=== PATIENT | male | born 1975 | race Caucasian/White ===

== ENCOUNTER 2024-01-07 13:58 | Inpatient (IN) ==
--- NOTE | 2024-01-07 14:11 | ED Triage Note ---
Date of Service January 07, 2024 Provider in Triage Author: Mike Pimentel History of Present Illness This patient was briefly evaluated while in triage. An abbreviated physical exam was performed. This patient is a 48-year-old Male who presents to the ED for evaluation of trouble breathing and pain. Recent exposure to covid and flu. Currently treated for pneumonia as of today. On antibiotics now. Hx of smoking. No hx of blood clot. Pain in chest and both sides. Notes he had a chest xray just before coming in today. Physical Exam GENERAL: 48 year old male. In no acute distress. SKIN: No lesions or rashes. HEART: Regular rate and rhythm. LUNGS: Clear to auscultation. ABDOMEN: Bowel sounds normoactive. No guarding or rigidity. No tenderness of palpation. NEURO: Alert and oriented. No deficits. MUSCULOSKELETAL: No deformities to inspection of the extremities. PSYCH: Patient is pleasant and answers all questions appropriately. Initial orders for labs and / or imaging were placed and patient was placed in the waiting area until a bed is available. Please see further documentation for the full ED course. Pt requesting pain medication. We discussed benefit vs risk of toradol and through shared decision making with patient we will proceed.
[2024-01-07] MEDS: KETOROLAC TROMETHAMINE 15 MG/ML VIAL IV ONE (14:32)
--- NOTE | 2024-01-07 15:02 | Electrocardiogram Report ---
Test Reason : Blood Pressure : / mmHG Vent. Rate : 097 BPM Atrial Rate : 097 BPM P-R Int : 156 ms QRS Dur : 094 ms QT Int : 372 ms P-R-T Axes : 043 060 016 degrees QTc Int : 472 ms Normal sinus rhythm Possible Left atrial enlargement Incomplete right bundle branch block Abnormal ECG No previous ECGs available Confirmed by Ifeanyi Townsend ([id number]) on 01/07/2024 3:02:05 PM Referred By: Confirmed By:Pawel Townsend
[2024-01-07 15:07] LABS: Basophils # (auto) 0.05 K/uL (0.00-0.20); Basophils % (auto) 0.3 %; Hematocrit (blood only) 48.3 % (42.0-52.0); Hemoglobin 16.2 g/dl (14.0-18.0); Immature Granulocytes % (auto) 0.7 %; Lymphocytes # (auto) 1.02 K/uL (1.20-3.40); Lymphocytes % (auto) 6.8 %; Mean Corpuscular Hemoglobin 30.6 pg (25.0-34.0); Mean Corpuscular Hgb Conc 33.5 g/dL (32.0-36.0); Mean Corpuscular Volume 91.1 fL (80.0-100.0); Mean Platelet Volume 9.6 fL (9.4-12.4); Monocytes # (auto) 1.29 K/uL (0.11-0.59); Monocytes % (auto) 8.6 %; Neutrophils # (auto) 12.46 K/uL (1.40-6.50); Neutrophils % (auto) 83.6 %; Platelet Count 313 K/uL (130-400); RDW Coefficient of Variation 12.6 % (11.5-14.5); RDW Standard Deviation 41.8 fL (36.4-46.3); White Blood Count 14.92 K/ul (4.8-10.8)
[2024-01-07 15:32] LABS: Albumin Globulin Ratio 1.5 (0.9-2); Albumin Level 4.9 gm/dl (3.4-5.0); BUN Creatinine Ratio 16.3 (10-20); Bilirubin,Total 2.3 mg/dl (0.2-1.0); Calcium 9.9 mg/dl (8.6-10.3); Est GFR (African American) 72.5 ml/min; Est GFR (Non-African American) 62.5 ml/min; Globulin 3.2 gm/dl (2.5-4.0); Potassium 3.8 mmol/L (3.5-5.1); Total Protein 8.1 gm/dl (6.0-8.3)
[2024-01-07 15:38] LABS: INR 1.1 (0.9-1.1); Prothrombin Time 12.3 Seconds (9.0-12.0)
[2024-01-07 15:39] LABS: Troponin I High Sensitivity 16.5 pg/ml (0-20)
[2024-01-07] MEDS: SODIUM CHLORIDE 0.9% 1,000 ML IV SCH ×2 (15:39→16:55)
--- NOTE | 2024-01-07 15:50 | Emergency Department Note ---
History of Present Illness General Chief complaint: Illness Stated complaint: PNEUMONIA, GEN. PAIN, SOB Time Seen by Provider: 01/07/24 14:43 History of Present Illness Maximum Pain Intensity: 10 This is a 48-year-old male with a history of hypertension, hypercholesterolemia that presents to the emergency department via private vehicle with complaints of "chest pain, shortness of breath, cough". The patient notes that last week he was seen at [facility] for dry cough and was prescribed prednisone. He states that he has continued now with worsening symptoms and upon awakening today notes pain in his chest as well as his bilateral posterior ribs. Pain is worse with a deep breath. He notes the cough is productive of a yellowish-sparks sputum. No blood in the sputum. No history of PE or DVT. He notes he felt feverish last night but denies any current fever. He did have Tylenol earlier today. Home Medications Medication Instructions Recorded Confirmed Type Kay 1 tab PO DAILY 01/07/24 01/07/24 History albuterol sulfate 90 mcg/actuation 2 puff inhalation Q4H PRN Other 01/07/24 01/07/24 History aerosol inhaler amoxicillin 875 mg-potassium 1 tab PO BID 01/07/24 01/07/24 History clavulanate 125 mg tablet atorvastatin 20 mg tablet 20 mg PO DAILY 01/07/24 01/07/24 History azithromycin 250 mg tablet 250 mg PO UD 01/07/24 01/07/24 History benzonatate 100 mg capsule 100 mg PO TID cough 01/07/24 01/07/24 History famotidine 20 mg tablet (Pepcid) 20 mg PO DAILY 01/07/24 01/07/24 History lisinopril 10 mg tablet 10 mg PO DAILY 01/07/24 01/07/24 History prednisone 20 mg tablet 20 mg PO UD 01/07/24 01/07/24 History Allergies Allergy/AdvReac Type Severity Reaction Status Date / Time No Known Allergies Allergy Unverified 01/07/24 16:49 Past Med/Surg History Medical History (Updated 01/07/24 @ 22:53 by Mike Pimentel PA-C) Hypercholesterolemia HTN (hypertension) Surgical History (Updated 01/07/24 @ 15:53 by Mike Pimentel PA-C) No pertinent past surgical history Social History Smoking Status: Current every day smoker Preferred Language: Malawian Feels Safe at Home: Yes Review of Systems A total of 10 systems reviewed and were otherwise negative Physical Exam Vital Signs Vital Signs - 24 hr 01/07/24 14:09 01/07/24 15:20 01/07/24 16:10 Temperature 35 C L 36.8 C 36.8 C Temperature Source Temporal Artery Scan Oral Oral Pulse Rate 90 Pulse Rate [Right Finger] 92 H Pulse Rhythm Pulse Rhythm [Right Finger] Regular Pulse Strength [Right Finger] Normal Respiratory Rate 16 16 Respiratory Effort / Characteristics Non-Labored Spontaneous Respiratory Depth Normal Respiratory Pattern Regular Blood Pressure 125/73 Blood Pressure [Right Arm] 104/75 Blood Pressure Mean 90 Blood Pressure Mean [Right Arm] 84 Blood Pressure Position [Right Arm] Semi-fowlers Pulse Oximetry 91 93 Oxygen Delivery Method Room Air Room Air Sepsis Recent Fever Within 48 Hours No Sepsis New/Unexplained Change in Mental Status No Sepsis Action Taken by Nursing No Action Required 01/07/24 16:10 01/07/24 16:26 Temperature Temperature Source Pulse Rate 92 H 89 Pulse Rate [Right Finger] Pulse Rhythm Regular Pulse Rhythm [Right Finger] Pulse Strength [Right Finger] Respiratory Rate 16 Respiratory Effort / Characteristics Respiratory Depth Respiratory Pattern Blood Pressure Blood Pressure [Right Arm] Blood Pressure Mean Blood Pressure Mean [Right Arm] Blood Pressure Position [Right Arm] Pulse Oximetry 93 Oxygen Delivery Method Room Air Sepsis Recent Fever Within 48 Hours Sepsis New/Unexplained Change in Mental Status Sepsis Action Taken by Nursing VITAL SIGNS - Vital signs and nursing notes were reviewed. Borderline hypoxic at 91% on room air, otherwise stable. Afebrile. GENERAL -48-year-old male appearing his stated age who is in no acute distress. Communicates well with provider and answers questions appropriately. SKIN - Without rashes. No meningeal or petechial rash. HEAD - NC/AT. EYES - PERRL with EOMI bilaterally. Sclera anicteric. EARS - No deformities of external structures noted on gross examination bilaterally. No pain elicited with palpation of the tragus bilaterally. External auditory canals without discharge or otorrhea. Tympanic membranes pearly [place] without retraction or bulging. No fluid or purulent material visualized behind the TM. Handle of malleus, umbo, cone of light, pars tensa/flaccid all easily visualized. NOSE - Midline and without cyanosis. No epistaxis or purulent drainage noted. Septum midline without deviation or septal hematoma noted. MOUTH/OROPHARYNX - Without perioral cyanosis. Buccal mucosa pink and moist and without leukoplakia. Tongue midline with equal elevation of palate bilaterally. No tonsillar hypertrophy, erythema, or exudates noted. Good dentition noted. NECK - Neck with FROM. Supple to palpation. No nuchal rigidity. LUNGS -patient with mild increased work of breathing noted. There are no wheezes. CARDIAC - RRR with S1/S2. No murmur, rubs, or gallops appreciated. ABDOMEN - Abdominal contour normal without pulsations or visible masses. BS normoactive all four quadrants. No tenderness, palpable masses, hepatosplenomegaly, or ascites noted. EXTREMITIES - No clubbing or peripheral cyanosis. No pretibial edema present. +5/5 strength noted in UE/LE bilaterally. NEUROLOGIC - Cranial nerves II through XII grossly intact. PSYCH - A&Ox3 and cooperates fully with examiner. Pt is very pleasant and interacts well with examiner. Course Administered Medications Acetaminophen (Acetaminophen 325 Mg Tab) 650 mg PO Q6H [facility] Stop: 02/06/24 21:59 Last Admin: 01/07/24 22:01 Dose: 650 mg Documented By: HB Albuterol (Albut/Ipratrop 3mg/0.5mg Neb 3 Ml Vial) 3 ml NEB QIDR [facility]; Protocol Stop: 02/06/24 18:59 Last Admin: 01/07/24 18:22 Dose: 3 ml Documented By: YORDAN Benzonatate (Benzonatate 100 Mg Capsule) 100 mg PO TID [facility] Stop: 02/06/24 20:59 Last Admin: 01/07/24 21:13 Dose: 100 mg Documented By: HB Enoxaparin Sodium (Enoxaparin Inj 40 Mg/0.4 Ml Syr) 40 mg SQ Q24H [facility] Stop: 02/06/24 20:59 Last Admin: 01/07/24 21:13 Dose: 40 mg Documented By: HB Ampicillin Sodium/Sulbactam Sodium 3,000 mg/ Sodium Chloride 100 mls @ 100 mls/hr IV Q6H [facility] Stop: 01/14/24 19:59 Last Infusion: 01/07/24 20:00 Dose: Infused Documented By: Admin: 01/07/24 19:56 Dose: 100 mls/hr Documented By: STEPHENIE Sodium Chloride (Sodium Chlor 7% 4 Ml Neb) 4 ml NEB BIDR [facility]IANA Stop: 02/06/24 18:59 Last Admin: 01/07/24 20:12 Dose: 4 ml Documented By: YINT Discontinued Medications Acetaminophen (Acetaminophen 500 Mg Tab) 1,000 mg PO NOW STA Stop: 01/07/24 18:09 Last Admin: 01/07/24 18:20 Dose: 1,000 mg Documented By: YORDAN Guaifenesin/Codeine Phosphate (Guaifenesin/Codeine 100mg/10mg 5ml Udc) 10 ml PO NOW STA Stop: 01/07/24 17:29 Last Admin: 01/07/24 18:19 Dose: 10 ml Documented By: YORDAN Sodium Chloride (Nss) 1,000 mls @ 999 mls/hr IV .Q1H1M [facility]IVIANA Stop: 01/07/24 16:00 Last Infusion: 01/07/24 20:00 Dose: Infused Documented By: Admin: 01/07/24 15:39 Dose: 999 mls/hr Documented By: YORDAN Cefepime HCl (Maxipime) 2,000 mg in 20 mls @ 5 mls/min IV NOW STA; Protocol Stop: 01/07/24 16:10 Last Admin: 01/07/24 16:55 Dose: 5 mls/min Documented By: RENA Sodium Chloride (Nss) 1,000 mls @ 999 mls/hr IV .Q1H1M [facility]IVIANA Stop: 01/07/24 17:45 Last Infusion: 01/07/24 20:00 Dose: Infused Documented By: Admin: 01/07/24 16:55 Dose: 999 mls/hr Documented By: RENA Ioversol (Optiray 320 125ml) 117 ml IV ONCE ONE Stop: 01/07/24 15:51 Last Admin: 01/07/24 15:51 Dose: 117 ml Documented By: PAULO Ketorolac Tromethamine (Ketorolac Tromethamine 15 Mg/Ml Vial) 10 mg IV NOW ONE Stop: 01/07/24 14:12 Last Admin: 01/07/24 14:32 Dose: 10 mg Documented By: SOFÍA Morphine Sulfate (Morphine Sulfate 2 Mg/Ml Carp) 2 mg IV NOW STA Stop: 01/07/24 15:36 Last Admin: 01/07/24 16:04 Dose: 2 mg Documented By: YORDAN Ondansetron HCl (Ondansetron Inj 2 Mg/Ml 2 Ml Vial) 4 mg IV NOW STA Stop: 01/07/24 15:36 Last Admin: 01/07/24 16:05 Dose: 4 mg Documented By: YORDAN Medical Decision Making Laboratory Data 01/07/24 11:43 01/07/24 11:43 Lab Results 01/07/24 01/07/24 01/07/24 Range/Units 11:43 14:33 16:35 WBC 14.92 H (4.8-10.8) K/ul RBC 5.30 (4.70-6.10) M/uL Hgb 16.2 (14.0-18.0) g/dl Hct 48.3 (42.0-52.0) % MCV 91.1 (80.0-100.0) fL MCH 30.6 (25.0-34.0) pg MCHC 33.5 (32.0-36.0) g/dL RDW Std Deviation 41.8 (36.4-46.3) fL RDW Coeff of Michelle 12.6 (11.5-14.5) % Plt Count 313 (130-400) K/uL MPV 9.6 (9.4-12.4) fL Immature Gran % (Auto) 0.7 % Neut % (Auto) 83.6 % Lymph % (Auto) 6.8 % [place] % (Auto) 8.6 % Eos % (Auto) 0.0 % Baso % (Auto) 0.3 % Neut # (Auto) 12.46 H (1.40-6.50) K/uL Lymph # (Auto) 1.02 L (1.20-3.40) K/uL [place] # (Auto) 1.29 H (0.11-0.59) K/uL Eos # (Auto) 0.00 (0.00-0.50) K/uL Baso # (Auto) 0.05 (0.00-0.20) K/uL Immature Gran # (Auto) 0.10 (0.01-0.20) K/uL PT 12.3 H (9.0-12.0) Seconds INR 1.1 (0.9-1.1) Sodium 138 (136-145) mmol/L Potassium 3.8 (3.5-5.1) mmol/L Chloride 98 (98-107) mmol/L Carbon Dioxide 26 (21-32) mmol/L Anion Gap 14 H (3-11) BUN 22 (6-23) mg/dl Creatinine 1.35 (0.6-1.4) mg/dl Est Cr Clr Drug Dosing 89.0 ml/min Est GFR ( Amer) 72.5 ml/min Est GFR (Non-Af Amer) 62.5 ml/min BUN/Creatinine Ratio 16.3 (10-20) Glucose 172 H (70-99(Fasting)) mg/dl Lactate 1.8 (0.4-2.0) mmol/L Calcium 9.9 (8.6-10.3) mg/dl Total Bilirubin 2.3 H (0.2-1.0) mg/dl AST 21 (13-39) U/L ALT 23 (7-52) U/L Alkaline Phosphatase 88 (34-104) U/L Troponin I High Sens 16.5 (0-20) pg/ml Total Protein 8.1 (6.0-8.3) gm/dl Albumin 4.9 (3.4-5.0) gm/dl Globulin 3.2 (2.5-4.0) gm/dl Albumin/Globulin Ratio 1.5 (0.9-2) Lipase 4 L (11-82) U/L Procalcitonin 1.05 H (0-0.5) ng/ml Nasal Screen MRSA (PCR) (Negative) Adenovirus (PCR) Not Detected (NotDetected) B. pertussis DNA (PCR) Not Detected (NotDetected) B.parapertussis DNA PCR Not Detected (NotDetected) C. pneumoniae DNA (PCR) Not Detected (NotDetected) Coronavirus OC43 (PCR) Not Detected (NotDetected) Coronavirus HKU1 (PCR) Not Detected (NotDetected) Coronavirus 229E (PCR) Not Detected (NotDetected) SARS-CoV-2 (PCR) Not Detected (NotDetected) Coronavirus NL63 (PCR) Not Detected (NotDetected) Human Metapneumovir PCR DETECTED A (NotDetected) Influenza Type A (PCR) Not Detected (NotDetected) Influenza Type B (PCR) Not Detected (NotDetected) M. pneumoniae (PCR) Not Detected (NotDetected) Parainfluenza 1 (PCR) Not Detected (NotDetected) Parainfluenza 2 (PCR) Not Detected (NotDetected) Parainfluenza 3 (PCR) Not Detected (NotDetected) Parainfluenza 4 (PCR) Not Detected (NotDetected) RSV (PCR) Not Detected (NotDetected) Entero/Rhino (PCR) Not Detected (NotDetected) 01/07/24 Range/Units 17:00 WBC (4.8-10.8) K/ul RBC (4.70-6.10) M/uL Hgb (14.0-18.0) g/dl Hct (42.0-52.0) % MCV (80.0-100.0) fL MCH (25.0-34.0) pg MCHC (32.0-36.0) g/dL RDW Std Deviation (36.4-46.3) fL RDW Coeff of Michelle (11.5-14.5) % Plt Count (130-400) K/uL MPV (9.4-12.4) fL Immature Gran % (Auto) % Neut % (Auto) % Lymph % (Auto) % [place] % (Auto) % Eos % (Auto) % Baso % (Auto) % Neut # (Auto) (1.40-6.50) K/uL Lymph # (Auto) (1.20-3.40) K/uL [place] # (Auto) (0.11-0.59) K/uL Eos # (Auto) (0.00-0.50) K/uL Baso # (Auto) (0.00-0.20) K/uL Immature Gran # (Auto) (0.01-0.20) K/uL PT (9.0-12.0) Seconds INR (0.9-1.1) Sodium (136-145) mmol/L Potassium (3.5-5.1) mmol/L Chloride (98-107) mmol/L Carbon Dioxide (21-32) mmol/L Anion Gap (3-11) BUN (6-23) mg/dl Creatinine (0.6-1.4) mg/dl Est Cr Clr Drug Dosing ml/min Est GFR ( Amer) ml/min Est GFR (Non-Af Amer) ml/min BUN/Creatinine Ratio (10-20) Glucose (70-99(Fasting)) mg/dl Lactate (0.4-2.0) mmol/L Calcium (8.6-10.3) mg/dl Total Bilirubin (0.2-1.0) mg/dl AST (13-39) U/L ALT (7-52) U/L Alkaline Phosphatase (34-104) U/L Troponin I High Sens (0-20) pg/ml Total Protein (6.0-8.3) gm/dl Albumin (3.4-5.0) gm/dl Globulin (2.5-4.0) gm/dl Albumin/Globulin Ratio (0.9-2) Lipase (11-82) U/L Procalcitonin (0-0.5) ng/ml Nasal Screen MRSA (PCR) Negative (Negative) Adenovirus (PCR) (NotDetected) B. pertussis DNA (PCR) (NotDetected) B.parapertussis DNA PCR (NotDetected) C. pneumoniae DNA (PCR) (NotDetected) Coronavirus OC43 (PCR) (NotDetected) Coronavirus HKU1 (PCR) (NotDetected) Coronavirus 229E (PCR) (NotDetected) SARS-CoV-2 (PCR) (NotDetected) Coronavirus NL63 (PCR) (NotDetected) Human Metapneumovir PCR (NotDetected) Influenza Type A (PCR) (NotDetected) Influenza Type B (PCR) (NotDetected) M. pneumoniae (PCR) (NotDetected) Parainfluenza 1 (PCR) (NotDetected) Parainfluenza 2 (PCR) (NotDetected) Parainfluenza 3 (PCR) (NotDetected) Parainfluenza 4 (PCR) (NotDetected) RSV (PCR) (NotDetected) Entero/Rhino (PCR) (NotDetected) Imaging Data Radiologist's Impression: Chest CTA 01/07/24 14:40 CHEST CTA for PULMONARY ARTERIES CT DOSE: 882.34 mGy.cm HISTORY: chest pain, abnormal chest xray TECHNIQUE: Multiaxial CT images of the chest were performed following the intravenous administration of contrast to evaluate the pulmonary arteries. 3D/Maximal intensity projection images were also obtained. Sagittal and coronal reformations were also reviewed. A dose lowering technique was utilized adhering to the principles of ALARA. COMPARISON STUDY: Chest x-ray 01/07/2024. FINDINGS: No acute fractures within the chest. There is a trace right pleural effusion. No pericardial effusion or left pleural effusion. No pneumothorax. Mild bronchial wall thickening within the lower lobes and right middle lobe. Otherwise, the central airways are patent. There are few punctate calcified granuloma seen within the lungs. Partial opacification of the distal right lower lobe bronchi. There are patchy consolidative and groundglass airspace opacities within the base of the bilateral lower lobes most pronounced within the right. This favors a pneumonia. The right lower lobe airspace opacity appears to demonstrate a small focus of cavitation on image 58. The thyroid gland enhances normally. Limited views of the upper abdomen demonstrate a normal spleen and right adrenal gland. The left adrenal gland is not included on this study. There is a partially visualized 1.9 cm hypodense lesion within the left hepatic lobe. This favors a cyst. Normal esophagus. Normal caliber thoracic aorta with no evidence for a dissection. The heart is top normal in size. The central pulmonary arteries are patent. There are few mildly enlarged mediastinal and bilateral hilar lymph nodes. These may be reactive to the suspected pneumonia. IMPRESSION: 1. Patchy consolidative and groundglass airspace opacities within the bilateral lower lobes posteriorly most pronounced on the right. This favors a pneumonia and corresponds the chest x-ray abnormality. There appears be a small focus of central cavitation within the right lower lobe pneumonia. Therefore, this could be due to aspiration. A 3-[address] follow-up recommended to ensure resolution. 2. Trace right pleural effusion. 3. Mild mediastinal and bilateral hilar lymphadenopathy. This is likely reactive. Attention at follow-up recommended. ACT 112: Negative or not required by law. Electronically signed by: Primo Jolley M.D. 01/07/2024 4:31 PM MDM Narrative Patient was seen and evaluated as above in triage, then in the [facility] waiting room, then formally in room B10. Review was performed of nursing notes and vital signs. I did review pertinent previous visits and patient history. After obtaining a thorough history and physical examination the above work up was performed. I did review the patient's outpatient chest x-ray from earlier today. This revealed low lung volumes with mild elevation of the right hemidiaphragm. Abnormal density within the lower lobes posteriorly overlying the thoracic spine. This could represent pneumonia. Follow-up chest CT recommended for further evaluation per radiologist. On my assessment the patient does have mild increased work of breathing. He has a borderline hypoxia at 91% on room air. He does have chest pain and pain in the posterior lateral rib region bilaterally. Patient denies any recent travel. Patient denies any history or exposure to TB that he is aware of. Patient denies any history of intermediate/usp time. Options of care were discussed with the patient. IV access was established. Labs were drawn. EKG was performed. This revealed normal sinus rhythm at a rate of 97 bpm. QTc 472. QRS 94. Incomplete right bundle branch block noted. No ST elevation on this rhythm tracing. No previous for comparison. Patient was medicated with IV Toradol for pain, IV fluids for hydration, and noted continuation of pain therefore was given a small dose of IV morphine, as well as IV Zofran for nausea. CTA of the chest revealed per radiologist patchy consolidative and groundglass airspace opacities within the bilateral lower lobes posteriorly most pronounced on the right. This favors pneumonia and corresponds to the chest x-ray abnormality. This appears to be a small focus of central cavitation within the right lower lobe pneumonia. Therefore, this could be due to aspiration. A 3-6-month chest CT follow-up recommendation to ensure resolution. Trace right pleural effusion. Mild mediastinal and bilateral hilar lymphadenopathy. Likely reactive. Attention follow-up recommended per radiologist. I reviewed these findings with the patient. Will proceed with admission noting the patient's associated borderline hypoxia, increased work of breathing and pain. While here he was medicated with IV cefepime for antibiotic coverage. MRSA nasal swab also obtained as well as sputum culture ordered. Case discussed with the hospitalist service. Please refer to further documentation regarding his stay. Case was discussed with the attending physician. GCS: 15 In the evaluation and treatment of this patient the following differential diagnoses were entertained: PE, pneumonia, dissection, viral illness, TB, among others. Impression & Plan Human metapneumovirus (hMPV) pneumonia, Multifocal pneumonia, Chest pain Discharge Plan Visit Data Chief Complaint: Illness Stated Complaint: PNEUMONIA, GEN. PAIN, SOB ED Provider: Franki Mcgregor ED Midlevel Provider: Mike Pimentel Discharge Problem: Human metapneumovirus (hMPV) pneumonia, Multifocal pneumonia, Chest pain Patient Disposition: Admitted As Inpatient Condition: Good Discharge Instructions Interventions: ED Discharge Assessment Last Done: 01/07/24 19:49
[2024-01-07] MEDS: OPTIRAY 320 125ml IV ONE (15:51)
[2024-01-07 15:52] LABS: Adenovirus PCR Not Detected (NotDetected); Bordetella parapertussis PCR Not Detected (NotDetected); Bordetella pertussis PCR Not Detected (NotDetected); Chlamydia pneumoniae PCR Not Detected (NotDetected); Coronavirus 229E PCR Not Detected (NotDetected); Coronavirus CoV-2 (COVID19)PCR Not Detected (NotDetected); Coronavirus HKU1 PCR Not Detected (NotDetected); Coronavirus NL63 PCR Not Detected (NotDetected); Coronavirus OC43PCR Not Detected (NotDetected); Human Metapneumovirus PCR DETECTED (NotDetected); Influenza A PCR Not Detected (NotDetected); Influenza B PCR Not Detected (NotDetected); Mycoplasma pneumoniae PCR Not Detected (NotDetected); Parainfluenza Virus 1 PCR Not Detected (NotDetected); Parainfluenza Virus 2 PCR Not Detected (NotDetected); Parainfluenza Virus 3 PCR Not Detected (NotDetected); Parainfluenza Virus 4 PCR Not Detected (NotDetected); Respiratory Syncytial VirusPCR Not Detected (NotDetected); Rhinovirus/Enterovirus PCR Not Detected (NotDetected)
[2024-01-07] MEDS: MoRPHine SULFATE 2 MG/ML CARP IV STA (16:04)
[2024-01-07] MEDS: ONDANSETRON INJ 2 MG/ML 2 ML VIAL IV STA (16:05)
--- NOTE | 2024-01-07 16:33 | CT Scan Report ---
CHEST CTA for PULMONARY ARTERIES CT DOSE: 882.34 mGy.cm HISTORY: chest pain, abnormal chest xray TECHNIQUE: Multiaxial CT images of the chest were performed following the intravenous administration of contrast to evaluate the pulmonary arteries. 3D/Maximal intensity projection images were also obta ined. Sagittal and coronal reformations were also reviewed. A dose lowering technique was utilized a dhering to the principles of ALARA. COMPARISON STUDY: Chest x-ray 01/07/2024. FINDINGS: No acute fractures within the chest. There is a trace right pleural effusion. No pericardia l effusion or left pleural effusion. No pneumothorax. Mild bronchial wall thickening within the lower lobes and right middle lobe. Otherwise, the central airways are patent. There are few punctate calci fied granuloma seen within the lungs. Partial opacification of the distal right lower lobe bronchi. T here are patchy consolidative and groundglass airspace opacities within the base of the bilateral low er lobes most pronounced within the right. This favors a pneumonia. The right lower lobe airspace [place] appears to demonstrate a small focus of cavitation on image 58. The thyroid gland enhances [place]. Limited views of the upper abdomen demonstrate a normal spleen and right adrenal gland. The left adrenal gland is not included on this study. There is a partially visualized 1.9 cm hypodense lesion within the left hepatic lobe. This favors a cyst. Normal esophagus. Normal caliber thoracic aorta wi th no evidence for a dissection. The heart is top normal in size. The central pulmonary arteries are patent. There are few mildly enlarged mediastinal and bilateral hilar lymph nodes. These may be react braxton to the suspected pneumonia. IMPRESSION: 1. Patchy consolidative and groundglass airspace opacities within the bilateral lower lobes posterior ly most pronounced on the right. This favors a pneumonia and corresponds the chest x-ray abnormality. There appears be a small focus of central cavitation within the right lower lobe pneumonia. Therefor e, this could be due to aspiration. A 3-[address] follow-up recommended to ensure resolution. 2. Trace right pleural effusion. 3. Mild mediastinal and bilateral hilar lymphadenopathy. This is likely reactive. Attention at follow -up recommended. ACT 112: Negative or not required by law. Electronically signed by: Primo Jolley M.D. 01/07/2024 4:31 PM
[2024-01-07] MEDS: CEFEPIME 2,000 MG/20 ML VIAL IV STA (16:55)
--- NOTE | 2024-01-07 17:05 | History & Physical Report ---
Date of Service January 07, 2024 Assessment & Plan (1) Multifocal pneumonia: Plan: -Admit to med/tele on pulse oximetry -Currently hemodynamically stable and stable on RA -Presented to the ED after he developed BL chest pain and increased SOB this am after waking -CTA of the chest with PE protocol was negative for PE but does show signs consistent with multifocal pneumonia with a central area of cavitation in the RLL consolidation -Patient's symptoms were likely due to his Human metapneumovirus infection last week, but he has progressed to superimposed multifocal pneumonia -High suspicion that he aspirated overnight after taking NyQuil to help with sleep -Had a dose of PO Augmentin and Azithromycin this am prior to ED arrival -His leukocytosis with neutrophil predominance could be due to his recent course of prednisone but cannot rule out his infection causing this -Received a dose of Cefepime and 2L NSS in the ED -MRSA nasal swab is in process, if positive will add MRSA coverage -For now will continue with Unasyn to cover possible aspiration pneumonia and continue Azithromycin for atypical coverage -Sputum culture and blood cultures obtained in the ED, continue to follow -Will consult Pulmonology due to the area of cavitation in the RLL >Patient denies recent travel or incarceration -Incentive spirometry, flutter therapy, QIDr DuoNeb, PRN Guaifenesin/Codeine -Will also start BIDr hypertonic saline nebulizer treatments -PRN O2 to keep SpO2 at or above 92% -SQ lovenox for DVT PPX -HH diet -AM CBC, BMP, mag (2) Human metapneumovirus (hMPV) pneumonia: Plan: -See Multifocal pneumonia -Continue supportive care (3) Chest pain: Plan: -Patient started to experience BL chest pain this am -Is significantly exacerbated with movement and coughing -High sen trop WNL, ECG without ST segment or T-wave abnormalities -CTA of the chest with PE protocol negative for PE -Likely related to his multifocal pneumonia and musculoskeletal pain from coughing -Continue supportive care -Continue Guaifenesin/Codeine, will start q6h scheduled tylenol as well -Continue to monitor on tele (4) Tobacco abuse: Plan: -Has been smoking approximately 1PPD over the past year -Had quit over the past 7 years before restarting -Strongly encouraged cessation, patient is in agreement -Denies the need for nicotine patch/gum at this time (5) Alcohol abuse: Plan: -Drinks approximately 5, mixed drinks, 5 days a week -Denies previous withdrawal symptoms when he does not drink -Last drink was on 01/01 -No signs/symptoms of withdrawal at this time -Continue to monitor (6) HTN (hypertension): Plan: -Stable -Continue lisinopril (7) Hypercholesterolemia: Plan: -Continue statin Plan The patient was discussed with Dr. Jo at the time of the admission History of Present Illness Chief Complaint: Ongoing SOB, chest pain, generalized weakness Primary Care Provider: NIKITA PCP Hector is a 48 year old female with a PMH significant for HTN and hyperlipidemia who presented to the [facility] ED on 01/07/24 with complaints of ongoing SOB, BL chest pain, and generalized weakness. He was noted to be tachycardic with HR of 92 but was otherwise stable. Labs were significant for a leukocytosis of 14 with neutrophil predominance of 12, lymphocyte count of 1.02, AG of 14 with bicarb WNL, glucose of 172, lactate WNL, procal of 1.05, and full respiratory biofire positive for Human [place] pneumovirus. Chest xray was read as "1. Low lung volumes with mild elevation the right hemidiaphragm. 2. Abnormal density within the lower lobes posteriorly overlying the thoracic spine. This could represent a pneumonia. Follow-up chest CT recommended for further evaluation.". Chest CTA with PE protocol was read as "1. Patchy consolidative and groundglass airspace opacities within the bilateral lower lobes posteriorly most pronounced on the right. This favors a pneumonia and corresponds the chest x-ray abnormality. There appears be a small focus of central cavitation within the right lower lobe pneumonia. Therefore, this could be due to aspiration. A 3- [address] follow-up recommended to ensure resolution. 2. Trace right pleural effusion. 3. Mild mediastinal and bilateral hilar lymphadenopathy. This is likely reactive. Attention at follow-up recommended.". Per the ED staff, the patient denies a hx of recent travel or incarceration. Prior to admission the patient was given 2L NSS, a dose of Cefepime, 10 mg IV toradol, 2 mg IV morphine, and 4 mg IV zofran. At the time of the exam the patient was sitting in bed in no acute distress, he does appear ill. He states that he started to develop URI symptoms including SOB, non-productive cough, and generalized weakness. He was evaluated at an Urgent care on 01/02 and was prescribed a 5 day course of prednisone and Tessalon pearls. His symptoms did not improve so he called his PCP yesterday and was prescribed a course of Augmentin and Azithromycin. He states that he had one dose of both this am. Last night he took NyQuil and slept throughout the night. He states that when he woke this morning he started to experience BL chest pain, exacerbated with movement and coughing. He noted a fever of 101F and is now producing yellow-brown sputum. Because of these symptoms he presented to the ED. He states that he had been compliant with smoking cessation for 7 years until he restarted about one year ago. He smokes approximately 1 PPD. Since getting treatment in the ED his chest discomfort has improved but has not subsided. He has been having trouble taking deep breaths due to his chest pain. When asked, he does drink alcohol approximately 5 days a week. He typically drinks mixed drinks with liquor and soda. His last drink was on 01/01. He denies a previous hx of withdrawal symptoms when he stops drinking. Please refer to Dr. Jo' attestation for any changes to the treatment plan Allergies Allergy/AdvReac Type Severity Reaction Status Date / Time No Known Allergies Allergy Unverified 01/07/24 16:49 Home Medications Medication Instructions Recorded Confirmed Type Kay 1 tab PO DAILY 01/07/24 01/07/24 History albuterol sulfate 90 mcg/actuation 2 puff inhalation Q4H PRN Other 01/07/24 01/07/24 History aerosol inhaler amoxicillin 875 mg-potassium 1 tab PO BID 01/07/24 01/07/24 History clavulanate 125 mg tablet atorvastatin 20 mg tablet 20 mg PO DAILY 01/07/24 01/07/24 History azithromycin 250 mg tablet 250 mg PO UD 01/07/24 01/07/24 History benzonatate 100 mg capsule 100 mg PO TID cough 01/07/24 01/07/24 History famotidine 20 mg tablet (Pepcid) 20 mg PO DAILY 01/07/24 01/07/24 History lisinopril 10 mg tablet 10 mg PO DAILY 01/07/24 01/07/24 History prednisone 20 mg tablet 20 mg PO UD 01/07/24 01/07/24 History Past Med/Surg History Medical History (Updated 01/07/24 @ 17:46 by Ion Velasquez PA-C) Hypercholesterolemia HTN (hypertension) Surgical History (Updated 01/07/24 @ 15:53 by Mike Pimentel PA-C) No pertinent past surgical history Social History Smoking Status: Current every day smoker Preferred Language: Uzbek Feels Safe at Home: Yes Physical Exam Physical Exam: Physical Exam: General: In no acute distress, stated age, ill appearing but non-toxic HEENT: Normocephalic, atraumatic, no scleral icterus, pupils around round, symmetrical, and reactive to light, moist mucus membranes, trachea midline, no thyromegaly Chest/Pulm: No respiratory distress, symmetrical chest expansion, currently taking shallow breaths due to BL chest pain, scattered expiratory wheezing in the mid/upper lung bartlett, rhonchi noted in the BL lower lung bartlett Cardiac: RRR, no murmurs noted Abdomen: Negative for ascites and bruising, normoactive bowel sounds, soft, non-tender to palpation throughout Musculoskeletal: Symmetrical and without signs of acute trauma, upper and lower extremities with full ROM, no atrophy, spasticity, or flaccidity Extremities: Radial, dorsalis pedis, and posterior tibial pulses are intact and symmetrical, no edema noted in the BL LE's Skin: Warm, dry, no rashes , lesions, or scars noted Neuro: Alert and oriented to person, place, month, year, and president, no focal defects, no tremors noted Psych: No acute distress, calm and cooperative during the exam Results & Data Results & Data Vital Signs (Past 12 Hours) Vital Signs Temp Pulse Pulse Resp BP BP Pulse Ox 01/07/24 16:10 92 H 16 93 01/07/24 16:10 36.8 C 92 H 16 104/75 93 01/07/24 15:20 36.8 C 01/07/24 14:09 35 C L 90 16 125/73 91 O2 Del Method 01/07/24 16:10 Room Air 01/07/24 16:10 Room Air 01/07/24 15:20 01/07/24 14:09 Room Air Laboratory Results Abnormal lab results 01/07/24 01/07/24 Range/Units 11:43 14:33 WBC 14.92 H (4.8-10.8) K/ul Neut # (Auto) 12.46 H (1.40-6.50) K/uL Lymph # (Auto) 1.02 L (1.20-3.40) K/uL [place] # (Auto) 1.29 H (0.11-0.59) K/uL PT 12.3 H (9.0-12.0) Seconds Anion Gap 14 H (3-11) Glucose 172 H (70-99(Fasting)) mg/dl Total Bilirubin 2.3 H (0.2-1.0) mg/dl Lipase 4 L (11-82) U/L Procalcitonin 1.05 H (0-0.5) ng/ml Human Metapneumovir PCR DETECTED A (NotDetected) Diagnostic Findings Chest CTA 01/07/24 14:40 CHEST CTA for PULMONARY ARTERIES CT DOSE: 882.34 mGy.cm HISTORY: chest pain, abnormal chest xray TECHNIQUE: Multiaxial CT images of the chest were performed following the intr avenous administration of contrast to evaluate the pulmonary arteries. 3D/Maximal intensity projection images were also obtained. Sagittal and coronal reformations were also reviewed. A dose lowering technique was utilized adhering to the principles of ALARA. COMPARISON STUDY: Chest x-ray 01/07/2024. FINDINGS: No acute fractures within the chest. There is a trace right pleural effusion. No pericardial effusion or left pleural effusion. No pneumothorax. Mild bronchial wall thickening within the lower lobes and right middle lobe. Otherwise, the central airways are patent. There are few punctate calcified granuloma seen within the lungs. Partial opacification of the distal right lower lobe bronchi. There are patchy consolidative and groundglass airspace opacities within the base of the bilateral lower lobes most pronounced within the right. This favors a pneumonia. The right lower lobe airspace opacity appears to demonstrate a small focus of cavitation on image 58. The thyroid gland enhances normally. Limited views of the upper abdomen demonstrate a normal spleen and right adrenal gland. The left adrenal gland is not included on this study. There is a partially visualized 1.9 cm hypodense lesion within the left hepatic lobe. This favors a cyst. Normal esophagus. Normal caliber thoracic aorta with no evidence for a dissection. The heart is top normal in size. The central pulmon gregorio arteries are patent. There are few mildly enlarged mediastinal and bilateral hilar lymph nodes. These may be reactive to the suspected pneumonia. IMPRESSION: 1. Patchy consolidative and groundglass airspace opacities within the bilateral lower lobes posteriorly most pronounced on the right. This favors a pneumonia and corresponds the chest x-ray abnormality. There appears be a small focus of central cavitation within the right lower lobe pneumonia. Therefore, this could be due to aspiration. A 3-[address] follow-up recommended to ensure resolution. 2. Trace right pleural effusion. 3. Mild mediastinal and bilateral hilar lymphadenopathy. This is likely reactive. Attention at follow-up recommended. ACT 112: Negative or not required by law. Electronically signed by: Primo Jolley M.D. 01/07/2024 4:31 PM ECG Additional Comments: Normal sinus rhythm Possible Left atrial enlargement Incomplete right bundle branch block Abnormal ECG No previous ECGs available Confirmed by Ifeanyi Townsend ([id number]) on 01/07/2024 3:02:05 PM Code Status & VTE Plan Code Status Full code VTE Prophylaxis Plan VTE Prophylaxis will be ordered: Yes Supervising Physician Co-Signing Physician Notes I have personally seen, evaluated and examined the patient. I have also personally discussed the management of the patient with the resident physician/ZENY and I agree with the exam findings documented in the history and physical examination and the documented assessment and plan unless otherwise stated below. Brief Exam: In general this is a pleasant 48-year-old male is alert and oriented x 3 at time my exam he is accompanied by his at the time of my examination he interacts appropriately. He is in moderate distress with his cough and his breathing. But states that he is not as distressed as he was earlier today when he came and evaluated he has some oxygen in place. HEENT: Normocephalic atraumatic. Heart: Regular rate and rhythm. Lungs coarse bilaterally with diffuse expiratory wheezing and rhonchi mid lung bartlett and lower lung bartlett. Abdomen: Soft nontender with positive bowel sounds. Neurologically: Alert and oriented x 3 and no focal deficit on exam. Assessment/plan: As described above. Please refer to orders for further planning. PG Care Time/CCT Total # of Minutes Spent Total Time Spent with Patient: Total time spent is greater than 50% in coordination of care (as documented) at patient's floor/unit and/or counseling patient: [place] [address] INT INP/OBS CARE 75MIN Patient Type New Medical Decision Making High Complexity Diagnoses Multifocal pneumonia J18.9 Human metapneumovirus (hMPV) pneumonia J12.3 Chest pain R07.9 Tobacco abuse Z72.0 Alcohol abuse F10.10 HTN (hypertension) I10 Hypercholesterolemia E78.00
[2024-01-07 18:12] LABS: Appearance Urine Clear (Clear); Blood Urine Negative (Negative); Color Urine Orange; Epithelial Cell Urine Auto >30 /lpf (0-5); Glucose Urine UA Negative (Negative); Ketones Urine Negative (Negative); Leukocyte Esterase Urine Trace (Negative); Nitrite Urine Positive (Negative); Protein Urine 1+ (Negative); RBC Urine Automated 0-4 /hpf (0-4); Specific Gravity Urine > 1.045 (1.000-1.030); Urobilinogen Urine Negative (Negative)
[2024-01-07] MEDS: guaiFENesin/CODEINE 100MG/10MG 5ML UDC PO STA (18:19)
[2024-01-07] MEDS: ACETAMINOPHEN 500 MG TAB PO STA (18:20)
[2024-01-07] MEDS: ALBUT/IPRATROP 3MG/0.5MG NEB 3 ML VIAL NEB SCH (18:22)
[2024-01-07 18:27] LABS: Bilirubin Urine 1+ (Negative)
[2024-01-07 19:05] LABS: Bacteria Urine Automated 1+ (Negative); Mucus Urine Present (None Prsent)
[2024-01-07] MEDS: AMPICILLIN/SULBACTAM SOD 3,000 MG in SODIUM CHLOR 0.9% MINI-B 100 ML IV SCH (19:56)
[2024-01-07] MEDS: SODIUM CHLOR 7% 4 ML NEB NEB SCH (20:12)
[2024-01-07] MEDS: BENZONATATE 100 MG CAPSULE PO SCH (21:13)
[2024-01-07] MEDS: ENOXAPARIN INJ 40 MG/0.4 ML SYR SQ SCH (21:13)
[2024-01-07] MEDS: ACETAMINOPHEN 325 MG TAB PO SCH (22:01)
[2024-01-08] MEDS: KETOROLAC TROMETHAMINE 15 MG/ML VIAL IV ONE (01:58)
[2024-01-08 05:59] LABS: Hematocrit (blood only) 40.4 % (42.0-52.0); Hemoglobin 13.8 g/dl (14.0-18.0); Mean Corpuscular Hemoglobin 31.1 pg (25.0-34.0); Mean Corpuscular Hgb Conc 34.2 g/dL (32.0-36.0); Mean Platelet Volume 9.6 fL (9.4-12.4); Platelet Count 219 K/uL (130-400); RDW Coefficient of Variation 12.7 % (11.5-14.5); RDW Standard Deviation 42.1 fL (36.4-46.3); Red Blood Count 4.44 M/uL (4.70-6.10); White Blood Count 11.83 K/ul (4.8-10.8)
[2024-01-08 06:03] LABS: BUN Creatinine Ratio 15.7 (10-20); Calcium 7.9 mg/dl (8.6-10.3); Creatinine Clr Calc Pharmacy 53.7 ml/min; Est GFR (African American) 39.5 ml/min; Est GFR (Non-African American) 34.1 ml/min; Magnesium 1.8 mg/dl (1.7-2.4)
[2024-01-08] MEDS ORDERED: lisinopril 10 MG TAB PO SCH (09:00)
--- NOTE | 2024-01-08 09:10 | Pulmonary Consultation ---
Date of Consultation January 08, 2024 Assessment & Plan (1) Multifocal pneumonia: (2) Human metapneumovirus (hMPV) pneumonia: Plan Impression: 48-year-old male with bilateral lower lobe pneumonia. The radiology call of cavitation is not particularly concerning at this point in time as it may represent dilated airway. He also has human metapneumovirus which requires only supportive care. Recommendations: 1. Pneumonia: Agree with antibiotics. Can transition to oral Augmentin with an anticipated course of 7 days. 2. Would recommend follow-up CT imaging in 10 to 12 weeks to document resolution. 3. No therapy indicated for human metapneumovirus. 4. Wean oxygen as tolerated. Patient may require supplemental oxygen at discharge. Formal two-step recommended. 5. High probability for sleep disordered breathing. Would recommend outpatient polysomnography. This can be coordinated through his primary care provider. 6. Smoking cessation recommended. This point time the patient appears to be improving. Disposition per primary service. Pulmonary will sign off. Feel free to contact us with questions or concerns History of Present Illness Attending Physician: Rick Ford MD History of Present Illness Asked by hospitalist to evaluate and assist in management of this patient admitted with pneumonia. History is obtained from discussion with patient as well as review electronic medical record. 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 He states he has been ill for about a week. He was seen at urgent care last week and given prednisone antitussives and Tessalon. Unclear if imaging was performed at that time. He was complaining of cough shortness of breath and chest discomfort. It became severe enough that over the last 48 hours he presented to the emergency room yesterday. He is found to have an elevated white blood cell count and [employer] was positive for metapneumovirus. CT was obtained which showed patchy bilateral lower lobe airspace opacities. He has been initiated on pain control and Unasyn. He is improving but continues to require supplemental oxygen. The patient states that he was advised that he likely has sleep disordered breathing and was referred for sleep study in the past however he did not want to complete that study so he was never evaluated. He is pain is improved. He does not report any recent loss of consciousness or syncopal events. He has not had any recent dental work. He denies any dysphagia or aspiration events. He does have about a [id number] history of tobacco exposure and smokes about 1/2 pack/day. No family history of lung disease that he is aware of. Allergies Allergy/AdvReac Type Severity Reaction Status Date / Time No Known Allergies Allergy Unverified 01/07/24 16:49 Home Medications Medication Instructions Recorded Confirmed Type Kay 1 tab PO DAILY 01/07/24 01/07/24 History albuterol sulfate 90 mcg/actuation 2 puff inhalation Q4H PRN Other 01/07/24 01/07/24 History aerosol inhaler amoxicillin 875 mg-potassium 1 tab PO BID 01/07/24 01/07/24 History clavulanate 125 mg tablet atorvastatin 20 mg tablet 20 mg PO DAILY 01/07/24 01/07/24 History azithromycin 250 mg tablet 250 mg PO UD 01/07/24 01/07/24 History benzonatate 100 mg capsule 100 mg PO TID cough 01/07/24 01/07/24 History famotidine 20 mg tablet (Pepcid) 20 mg PO DAILY 01/07/24 01/07/24 History lisinopril 10 mg tablet 10 mg PO DAILY 01/07/24 01/07/24 History prednisone 20 mg tablet 20 mg PO UD 01/07/24 01/07/24 History Patient History Medical History (Updated 01/07/24 @ 22:53 by Mike Pimentel PA-C) Hypercholesterolemia HTN (hypertension) Surgical History (Updated 01/07/24 @ 15:53 by Mike Pimentel PA-C) No pertinent past surgical history Social History Smoking Status: Current every day smoker Tobacco Type: Cigarettes Cigarettes Per Day: 10; Do You Dip or Chew Tobacco: No; Hx Alcohol Use: Yes Alcohol type: beer Hx Substance Use: No Preferred Language: Danish Communication Ability: Effective Senior Director Of Strategy Required: No Beliefs That Will Affect Care: None Current Living Situation: Spouse and Parent Other Information That Helps Us Care for You: No Feels Safe at Home: Yes Safety Concerns: Feels Safe At This Time Assistive Devices: None Review of Systems Review of Systems: Please refer to admission H&P. No additions or deletions Physical Exam Constitutional: WD/WN, vitals as above Neck: trachea midline, no thyromegaly Respiratory: normal respiratory effort, lungs clear to auscultation Cardiovascular: RRR, no murmur, no edema Gastrointestinal (Abdomen): normal bowel sounds, soft, nontender, no hepatosplenomegaly Musculoskeletal: Extremities: extremities normal to inspection Skin: no rashes, warm and dry Neurologic: Nonfocal exam Lymphatic: no cervical lymphadenopathy Results & Data Results & Data Vital Signs (Past 12 Hours) Vital Signs Temp Pulse Pulse Resp BP BP Pulse Ox 01/08/24 07:38 100 H 01/08/24 06:47 93 H 18 94 01/08/24 05:42 36.8 C 90 20 97/71 L 93 01/08/24 02:00 103 H 29 H 95/70 L 91 01/08/24 01:00 100 H 24 103/65 93 01/08/24 00:00 100 H 21 85/67 L 93 01/07/24 22:58 96 H 01/07/24 21:00 100 H 24 114/76 97 O2 Del Method O2 Flow Rate 01/08/24 07:38 01/08/24 06:47 Nasal Cannula 4 01/08/24 05:42 Nasal Cannula 3 01/08/24 02:00 01/08/24 01:00 01/08/24 00:00 01/07/24 22:58 01/07/24 21:00 Critical Care Results & Data Vital Signs (Past 12 Hours) Vital Signs Temp Pulse Pulse Resp BP BP Pulse Ox 01/08/24 07:38 100 H 01/08/24 06:47 93 H 18 94 01/08/24 05:42 36.8 C 90 20 97/71 L 93 01/08/24 02:00 103 H 29 H 95/70 L 91 01/08/24 01:00 100 H 24 103/65 93 01/08/24 00:00 100 H 21 85/67 L 93 01/07/24 22:58 96 H O2 Del Method O2 Flow Rate 01/08/24 07:38 01/08/24 06:47 Nasal Cannula 4 01/08/24 05:42 Nasal Cannula 3 01/08/24 02:00 01/08/24 01:00 01/08/24 00:00 01/07/24 22:58 Lab & Micro Results (Past 24 Hours) RBC 4.44 M/uL (4.70-6.10) L 01/08/24 WBC 11.83 K/ul (4.8-10.8) H 01/08/24 Hgb 13.8 g/dl (14.0-18.0) L 01/08/24 Hct 40.4 % (42.0-52.0) L 01/08/24 MCV 91.0 fL (80.0-100.0) 01/08/24 MCH 31.1 pg (25.0-34.0) 01/08/24 MCHC 34.2 g/dL (32.0-36.0) 01/08/24 RDW Standard Deviation 42.1 fL (36.4-46.3) 01/08/24 RDW Coefficient of Variation 12.7 % (11.5-14.5) 01/08/24 Plt Count 219 K/uL (130-400) 01/08/24 MPV 9.6 fL (9.4-12.4) 01/08/24 Neutrophils (%) (Auto) 83.6 % 01/07/24 Lymphocytes (%) (Auto) 6.8 % 01/07/24 Monocytes # (Auto) 1.29 K/uL (0.11-0.59) H 01/07/24 Eosinophils # (Auto) 0.00 K/uL (0.00-0.50) 01/07/24 Immature Granulocyte % (Auto) 0.7 % 01/07/24 Neutrophils # (Auto) 12.46 K/uL (1.40-6.50) H 01/07/24 Lymphocytes # (Auto) 1.02 K/uL (1.20-3.40) L 01/07/24 Monocytes # (Auto) 1.29 K/uL (0.11-0.59) H 01/07/24 Eosinophils # (Auto) 0.00 K/uL (0.00-0.50) 01/07/24 Basophils # (Auto) 0.05 K/uL (0.00-0.20) 01/07/24 Immature Granulocyte # (Auto) 0.10 K/uL (0.01-0.20) 4 Na 136 mmol/L (136-145) 01/08/24 K 4.0 mmol/L (3.5-5.1) 01/08/24 Cl 102 mmol/L (98-107) 01/08/24 CO2 22 mmol/L (21-32) 01/08/24 Anion Gap 12 (3-11) H 01/08/24 BUN 35 mg/dl (6-23) H 01/08/24 Creatinine 2.23 mg/dl (0.6-1.4) H 01/08/24 Estimated GFR ( Amer) 39.5 ml/min 01/08/24 Estimated GFR (Non-Af Amer) 34.1 ml/min 01/08/24 BUN/Creatinine Ratio 15.7 (10-20) 01/08/24 Glu 110 mg/dl (70-99(Fasting)) H 01/08/24 Ca 7.9 mg/dl (8.6-10.3) L 01/08/24 Total Bilirubin 2.3 mg/dl (0.2-1.0) H 01/07/24 AST 21 U/L (13-39) 01/07/24 ALT 23 U/L (7-52) 01/07/24 Alkaline Phosphatase 88 U/L (34-104) 01/07/24 TP 8.1 gm/dl (6.0-8.3) 01/07/24 Albumin 4.9 gm/dl (3.4-5.0) 01/07/24 Globulin 3.2 gm/dl (2.5-4.0) 01/07/24 Albumin/Globulin Ratio 1.5 (0.9-2) 01/07/24 Mg 1.8 mg/dl (1.7-2.4) 01/08/24 05:03 Calcium Level 7.9 mg/dl (8.6-10.3) L 01/08/24 05:03 Prothromb Time International Ratio 1.1 (0.9-1.1) 01/07/24 11:4 3 Microbiology 01/07/24 20:50 Gram Stain - Final Sputum, Expectorated Sputum Culture - Preliminary Moderate normal adrian present, final report to follow. Diagnostic Findings (Past 24 Hours) Chest CTA 01/07/24 14:40 CHEST CTA for PULMONARY ARTERIES CT DOSE: 882.34 mGy.cm HISTORY: chest pain, abnormal chest xray TECHNIQUE: Multiaxial CT images of the chest were performed following the intravenous administration of contrast to evaluate the pulmonary arteries. 3D/Maximal intensity projection images were also obtained. Sagittal and coronal reformations were also reviewed. A dose lowering technique was utilized adhering to the principles of ALARA. COMPARISON STUDY: Chest x-ray 01/07/2024. FINDINGS: No acute fractures within the chest. There is a trace right pleural effusion. No pericardial effusion or left pleural effusion. No pneumothorax. Mild bronchial wall thickening within the lower lobes and right middle lobe. Otherwise, the central airways are patent. There are few punctate calcified granuloma seen within the lungs. Partial opacification of the distal right lower lobe bronchi. There are patchy consolidative and groundglass airspace opacities within the base of the bilateral lower lobes most pronounced within the right. This favors a pneumonia. The right lower lobe airspace opacity appears to demonstrate a small focus of cavitation on image 58. The thyroid gland enhances normally. Limited views of the upper abdomen demonstrate a normal spleen and right adrenal gland. The left adrenal gland is not included on this study. There is a partially visualized 1.9 cm hypodense lesion within the left hepatic lobe. This favors a cyst. Normal esophagus. Normal caliber thoracic aorta with no evidence for a dissection. The heart is top normal in size. The central pulmonary arteries are patent. There are few mildly enlarged mediastinal and bilateral hilar lymph nodes. These may be reactive to the suspected pneumonia. IMPRESSION: 1. Patchy consolidative and groundglass airspace opacities within the bilateral lower lobes posteriorly most pronounced on the right. This favors a pneumonia and corresponds the chest x-ray abnormality. There appears be a small focus of central cavitation within the right lower lobe pneumonia. Therefore, this could be due to aspiration. A 3-[address] follow-up recommended to ensure resolution. 2. Trace right pleural effusion. 3. Mild mediastinal and bilateral hilar lymphadenopathy. This is likely reactive. Attention at follow-up recommended. ACT 112: Negative or not required by law. Electronically signed by: Primo Jolley M.D. 01/07/2024 4:31 PM I & O Totals 24 Hours 01/07/24 01/08/24 01/09/24 06:59 06:59 06:59 Intake Total 2200 / 2200 Balance 2200 / 2200 Cumulative 01/07/24 13:58 thru 01/08/24 04:05 Intake Total 2200 Balance 2200 RT Ventilator Mngmt (Last Documented) Ventilator Ordered Settings Respiratory Rate 18 01/08/24 06:47 Ventilator - PT Measurements Respiratory Rate 18 PG Care Time/CCT Total # of Minutes Spent Total Time Spent with Patient: Total time spent is greater than 50% in coordination of care (as documented) at patient's floor/unit and/or counseling patient: Coding Level of Care Code 60230 IN/OBS CONSULT LVL 4,60M Diagnoses Multifocal pneumonia J18.9 Human metapneumovirus (hMPV) pneumonia J12.3
--- NOTE | 2024-01-08 09:26 | Ultrasound Report ---
RENAL ULTRASOUND HISTORY: Acute kidney injury. COMPARISON: None. FINDINGS: Right kidney: 13.4 cm. No hydronephrosis. Normal corticomedullary differentiation and cortical thickn ess. Left kidney: 14.5 cm. There is a 7 mm echogenic focus within the lower pole of the left kidney. No de finite shadowing. No hydronephrosis. Normal corticomedullary differentiation and cortical thickness. Bladder: No bladder wall thickening. The bilateral ureteral jets were identified. IMPRESSION: 1. No hydronephrosis. 2. A 7 mm echogenic focus within the lower pole of the left kidney. This is indeterminate but could r epresent a small stone. 3. Normal bladder and right kidney. ACT 112: Negative or not required by law. Electronically signed by: Primo Jolley M.D. 01/08/2024 9:25 AM
[2024-01-08] MEDS: FAMOTIDINE 20 MG TAB PO SCH (09:27)
[2024-01-08] MEDS: ATORVASTATIN 20 MG TAB PO SCH (09:27)
[2024-01-08] MEDS: LACTATED RINGER'S 1,000 ML IV ONE (09:31)
--- NOTE | 2024-01-08 10:16 | Hospitalist Progress Note ---
Date of Service January 08, 2024 Assessment & Plan (1) Multifocal pneumonia: Plan: Appreciate pulmonology consult (consulted due to cavitation) - plan to switch to Augmentin once definitively improving, follow up CT imaging in 10 to 12 weeks to document resolution. Continue Unasyn, azithromycin (notably took yesterday's dose as outpatient) - WBC improving MRSA nares negative Blood cultures negative 24 hours Urine culture - no growth to date Sputum culture - moderate normal adrian to date (2) Human metapneumovirus (hMPV) pneumonia: Plan: -See Multifocal pneumonia -Continue supportive care (3) DANIELITO (acute kidney injury): Plan: Suspect most likely inadequate fluid resuscitation with hypotension overnight in setting of lisinopril use Bladder scan unremarkable Renal US - possibility of ureterolithiasis therefore CT taken which was normal - > post obstructive cause ruled out at this time (4) Chest pain: Plan: Suspect pleurisy +/- MSK pain due to pneumonia Unfortunately can no longer have Toradol due to DANIELITO - once this is improving we will restart NSAIDs acetaminophen 650mg q6h Troponin x1 negative (5) Tobacco abuse: Plan: Cessation advised Declines nicotine patch (6) Alcohol abuse: Plan: Last drink was on 01/01 No signs/symptoms of withdrawal at this time (7) HTN (hypertension): Plan: Hypotensive overnight, lisinopril discontinued (8) Hypercholesterolemia: Plan: Continue statin Plan VTE prophylaxis - Lovenox 40 mg subcu daily Diet - heart healthy Disposition - continued admission on med/telemetry Admission and Anticipated Discharge Date Admission Date: January 07, 2024 Subjective Feeling improved but generally weak and far off his baseline. Continued shortness of breath. Chest pain on deep inspiration, coughing or palpation over lower anterior ribs. Review of Systems Review of Systems: All systems reviewed & are unremarkable except as noted in HPI & below Physical Exam Constitutional: + ill appearing ENMT: Mouth: + dry oral mucous membranes Respiratory: + uses accessory muscles Auscultation : + crackles and + rhonchi; no wheezes Cardiovascular: Rate/Rhythm: regular rhythm and + tachycardic Heart Sounds: no murmur Extremities: no pedal edema Gastrointestinal (Abdomen): normal bowel sounds, soft, nontender, no hepatosplenomegaly Skin: no rashes, warm and dry Neurologic: moves all extremities and awake; not confused Psychiatric: A+Ox3, euthymic affect Genitourinary: no CVA tenderness Results & Data Results & Data Vital Signs (Past 12 Hours) Vital Signs Temp Pulse Pulse Resp BP BP Pulse Ox 01/08/24 07:38 100 H 01/08/24 06:47 93 H 18 94 01/08/24 05:42 36.8 C 90 20 97/71 L 93 01/08/24 02:00 103 H 29 H 95/70 L 91 01/08/24 01:00 100 H 24 103/65 93 01/08/24 00:00 100 H 21 85/67 L 93 01/07/24 22:58 96 H O2 Del Method O2 Flow Rate 01/08/24 07:38 01/08/24 06:47 Nasal Cannula 4 01/08/24 05:42 Nasal Cannula 3 01/08/24 02:00 01/08/24 01:00 01/08/24 00:00 01/07/24 22:58 PG Care Time/CCT Total # of Minutes Spent Total Time Spent with Patient: Total time spent is greater than 50% in coordination of care (as documented) at patient's floor/unit and/or counseling patient: Coding Level of Care Code 72043 SUB INP/OBS CARE 2/35MIN Diagnoses Multifocal pneumonia J18.9 Human metapneumovirus (hMPV) pneumonia J12.3 DANIELITO (acute kidney injury) N17.9 Chest pain R07.9 Tobacco abuse Z72.0 Alcohol abuse F10.10 HTN (hypertension) I10 Hypercholesterolemia E78.00
[2024-01-08] MEDS: HYDROmorphone INJ 0.5 MG/0.5 ML SYR IV PRN (10:49)
[2024-01-08] MEDS: AZITHROMYCIN 500 MG in DEXTROSE 5% 250 ML IV SCH (10:50)
--- NOTE | 2024-01-08 11:03 | CT Scan Report ---
CT abd pelvis wo con CLINICAL HISTORY: DANIELITO, possible stone on renal US TECHNIQUE: Helical axial images of the abdomen and pelvis were obtained. Automated dose lowering tech niques and/or adjustment according to patient size were utilized for this exam. This exam was perfor med without intravenous contrast. CT DOSE: 1619.82 mGy.cm COMPARISON: Comparison is made to renal ultrasound 01/08/2024 FINDINGS: Lower chest: Small right pleural effusion is seen. There is airspace opacity in the bilateral lower lungs, likely superimposed on atelectasis. Liver: There is a 16 mm hepatic cyst. Gallbladder and biliary tree: Vicarious excretion of contrast is seen in the gallbladder. No intra- o r extrahepatic biliary ductal dilation. Pancreas: Unremarkable, no focal lesions. Spleen: Unremarkable. Adrenals: Unremarkable. Kidneys and ureters: Subcentimeter hypodensities in the left kidney which may represent cyst. No obst ructive stone is seen to correspond to hyperechoic lesion seen on ultrasound. Bladder: Limited evaluation due to underdistention. Reproductive organs: Prostatic calcifications are seen which may represent prior hemorrhage or granul omatous disease. Bowel: Diverticulosis is seen without diverticulitis. The appendix is normal. Lymph nodes Retroperitoneal: Unremarkable. Pelvic: Unremarkable. Mesenteric: Unremarkable. Peritoneum: Normal. Vessels: Atherosclerotic calcifications are seen. Abdominal wall: Umbilical degenerative Bones: Unremarkable. IMPRESSION: No acute abnormality and in particular no evidence of hydronephrosis or obstructive stone. No correla te is seen for the echogenic focus on prior ultrasound, which may have represented medullary fat. ACT 112: Negative or not required by law. Electronically signed by: Сергей Fitzpatrick M.D. 01/08/2024 11:01 AM
[2024-01-08] MEDS: LACTATED RINGER'S 1,000 ML IV SCH (12:36)
--- NOTE | 2024-01-08 13:16 | XRay Report ---
SINGLE VIEW CHEST CLINICAL HISTORY: Hypoxia FINDINGS: 2 AP, portable, upright chest radiographs are compared to chest x-ray and chest CT dated . The heart is mildly enlarged. There is mild pulmonary vascular congestion. There is bibasila r airspace consolidation, right greater than left. Small pleural effusions have increased in size fro m yesterday. No pneumothorax is seen. The bony thorax is grossly intact. IMPRESSION: 1. Cardiomegaly with mild pulmonary vascular congestion. 2. Bibasilar airspace consolidation is again noted. 3. Right large left pleural effusions have moderately increased in size from yesterday. ACT 112: Negative or not required by law. Electronically signed by: Figueroa Jain M.D. 01/08/2024 1:15 PM
[2024-01-08] MEDS: guaiFENesin/CODEINE 100MG/10MG 5ML UDC PO PRN (16:09)
[2024-01-09 05:27] LABS: Hematocrit (blood only) 37.7 % (42.0-52.0); Hemoglobin 12.7 g/dl (14.0-18.0); Mean Corpuscular Hemoglobin 30.9 pg (25.0-34.0); Mean Corpuscular Hgb Conc 33.7 g/dL (32.0-36.0); Mean Corpuscular Volume 91.7 fL (80.0-100.0); Mean Platelet Volume 9.9 fL (9.4-12.4); Platelet Count 228 K/uL (130-400); RDW Coefficient of Variation 12.9 % (11.5-14.5); RDW Standard Deviation 43.2 fL (36.4-46.3); Red Blood Count 4.11 M/uL (4.70-6.10)
[2024-01-09 06:04] LABS: Albumin Globulin Ratio 1.1 (0.9-2); Albumin Level 3.3 gm/dl (3.4-5.0); BUN Creatinine Ratio 17.9 (10-20); Bilirubin,Total 0.8 mg/dl (0.2-1.0); Calcium 8.4 mg/dl (8.6-10.3); Creatinine Clr Calc Pharmacy 59.6 ml/min; Est GFR (African American) 44.8 ml/min; Est GFR (Non-African American) 38.6 ml/min; Magnesium 2.1 mg/dl (1.7-2.4); Potassium 3.6 mmol/L (3.5-5.1); Total Protein 6.3 gm/dl (6.0-8.3)
[2024-01-09] MEDS: AZITHROMYCIN 250 MG TAB PO ONE (09:09)
--- NOTE | 2024-01-09 19:08 | Hospitalist Progress Note ---
Date of Service January 09, 2024 Assessment & Plan (1) Multifocal pneumonia: Plan: Appreciate pulmonology consult (consulted due to cavitation) - plan to switch to Augmentin once definitively improving, follow up CT imaging in 10 to 12 weeks to document resolution. Continue Unasyn, azithromycin (notably took yesterday's dose as outpatient) - WBC improving Procalcitonin increased and ongoing fevers (if these continue tomorrow may need to change antibiotics but suspect just lagging) MRSA nares negative Blood cultures negative 48 hours Urine culture - no growth to date Sputum culture - moderate normal adrian to date (2) Human metapneumovirus (hMPV) pneumonia: Plan: -See Multifocal pneumonia -Continue supportive care (3) DANIELITO (acute kidney injury): Plan: Suspect most likely inadequate fluid resuscitation with hypotension overnight in setting of lisinopril use Bladder scan unremarkable Renal US - possibility of ureterolithiasis therefore CT taken which was normal - > post obstructive cause ruled out at this time Improving with IV fluids, will continue LR overnight, likely can be discontinued tomorrow (4) Chest pain: Plan: Suspect pleurisy +/- MSK pain due to pneumonia Continue to avoid NSAIDs while Cr significantly elevated Continue acetaminophen 650mg q6h Troponin x1 negative (5) Tobacco abuse: Plan: Cessation advised Declines nicotine patch (6) Alcohol abuse: Plan: Last drink was on 01/01 No signs/symptoms of withdrawal at this time (7) HTN (hypertension): Plan: Continue off lisinopril due to DANIELITO, hypotensive on day of admission (8) Hypercholesterolemia: Plan: Continue statin Plan VTE prophylaxis - Lovenox 40 mg subcu daily Diet - heart healthy Disposition - continued admission on med/telemetry Admission and Anticipated Discharge Date Admission Date: January 07, 2024 Subjective No significant change in shortness of breath or chest pain. Ongoing fevers as of this morning at 3:42am. Eating and drinking well. Review of Systems Review of Systems: All systems reviewed & are unremarkable except as noted in HPI & below Physical Exam Constitutional: well developed; + not well nourished and no acute distress Respiratory: normal respiratory effort; no respiratory distress Auscultation: + crackles (bibasal); breath sounds present, no diminished lung sounds, no rales, no rhonchi and no wheezes Cardiovascular: Rate/Rhythm: regular rhythm and + tachycardic Heart Sounds: no murmur Extremities: no pedal edema Gastrointestinal (Abdomen): normal bowel sounds, soft, nontender, no hepatosplenomegaly Skin: no rashes, warm and dry Neurologic: moves all extremities and awake; not confused Psychiatric: A+Ox3, euthymic affect Results & Data Results & Data Vital Signs (Past 12 Hours) Vital Signs Temp Pulse Pulse Resp BP BP Pulse Ox 01/09/24 15:32 37.5 C 98 H 18 130/81 91 01/09/24 14:48 102 H 18 93 01/09/24 13:59 105 H 01/09/24 13:00 88 L 01/09/24 12:00 94 01/09/24 11:49 37 C 87 18 135/87 90 01/09/24 11:45 96 01/09/24 10:32 90 18 93 01/09/24 07:55 36.8 C 93 H 18 133/88 93 01/09/24 07:18 78 20 95 01/09/24 07:07 O2 Del Method O2 Flow Rate 01/09/24 15:32 Room Air 01/09/24 14:48 Nasal Cannula 1.5 01/09/24 13:59 01/09/24 13:00 Room Air, Nasal Cannula 0 01/09/24 12:00 Room Air, Nasal Cannula 2 01/09/24 11:49 Nasal Cannula 3 01/09/24 11:45 Nasal Cannula 3 01/09/24 10:32 Nasal Cannula 2 01/09/24 07:55 Nasal Cannula 3 01/09/24 07:18 Nasal Cannula 2 01/09/24 07:07 Nasal Cannula 2 PG Care Time/CCT Total # of Minutes Spent Total Time Spent with Patient: Total time spent is greater than 50% in coordination of care (as documented) at patient's floor/unit and/or counseling patient: Coding Level of Care Code 25069 SUB INP/OBS CARE 2/35MIN Diagnoses Multifocal pneumonia J18.9 Human metapneumovirus (hMPV) pneumonia J12.3 DANIELITO (acute kidney injury) N17.9 Chest pain R07.9 Tobacco abuse Z72.0 Alcohol abuse F10.10 HTN (hypertension) I10 Hypercholesterolemia E78.00
[2024-01-10 06:07] LABS: Hemoglobin 12.3 g/dl (14.0-18.0); Mean Corpuscular Hemoglobin 30.6 pg (25.0-34.0); Mean Corpuscular Hgb Conc 34.2 g/dL (32.0-36.0); Mean Corpuscular Volume 89.6 fL (80.0-100.0); Mean Platelet Volume 9.6 fL (9.4-12.4); Platelet Count 309 K/uL (130-400); RDW Coefficient of Variation 12.9 % (11.5-14.5); RDW Standard Deviation 42.6 fL (36.4-46.3); Red Blood Count 4.02 M/uL (4.70-6.10); White Blood Count 12.33 K/ul (4.8-10.8)
[2024-01-10 06:23] LABS: BUN Creatinine Ratio 15.9 (10-20); Creatinine Clr Calc Pharmacy 76.3 ml/min; Est GFR (African American) 60.4 ml/min; Est GFR (Non-African American) 52.1 ml/min; Potassium 3.6 mmol/L (3.5-5.1)
[2024-01-10] MEDS ORDERED: SODIUM CHLORIDE 0.65% NA SOLN 45 ML (OCEAN) PRN (14:11)
--- NOTE | 2024-01-10 16:09 | Hospitalist Progress Note ---
Date of Service January 10, 2024 Assessment & Plan (1) Multifocal pneumonia: Plan: Appreciate pulmonology consult (consulted due to cavitation) - plan to switch to Augmentin once definitively improving, follow up CT imaging in 10 to 12 weeks to document resolution. Continue Unasyn -continue to follow, seems to be overall improving MRSA nares negative Slowly weaning oxygen, hopefully home soon (2) Human metapneumovirus (hMPV) pneumonia: Plan: Likely initially a viral insult, with secondary bacterial overgrowth. Certainly human metapneumovirus can cause severe illness in and of itself. (3) DANIELITO (acute kidney injury): Plan: Improving on IV fluids. Continue fluids, continue to trend (4) Chest pain: Plan: Suspect pleurisy +/- MSK pain due to pneumonia Continue to avoid NSAIDs while Cr significantly elevated Continue acetaminophen 650mg q6h Troponin negative (5) Tobacco abuse: Plan: Would definitely benefit from smoke cessation (6) Alcohol abuse: Plan: Last drink was on 01/01 No signs/symptoms of withdrawal at this time (7) HTN (hypertension): Plan: Continue off lisinopril due to DANIELITO, hypotensive on day of admission (8) Hypercholesterolemia: Plan: Continue statin Plan VTE prophylaxis - Lovenox 40 mg subcu daily Diet - heart healthy Disposition -hopefully home soon Admission and Anticipated Discharge Date Admission Date: January 07, 2024 Subjective Feeling better, breathing better. Coughing but not bringing a lot up although he feels a lot rumbling in his chest. Overall feels improved, just not quite well enough to go home. Is now been weaned to 1 L nasal cannula. Review of Systems Review of Systems: All systems reviewed & are unremarkable except as noted in HPI & below Physical Exam Physical Exam: In general he is awake and alert fatigued appearing small nosebleed on his nasal cannula that is staining his mustache, otherwise no distress. HEENT normocephalic atraumatic mucous membranes moist. Lungs show scattered rhonchi with no real focality, no accessory muscle use, no wheezing no real rales. Good effort. Skin without rashes pallor or icterus. Neuro without focal deficits. Results & Data Results & Data Vital Signs (Past 12 Hours) Vital Signs Temp Pulse Pulse Resp BP Pulse Ox O2 Del Method 01/10/24 15:44 87 20 88 L Nasal Cannula 01/10/24 15:14 99.0 F 94 H 20 168/92 H 90 Nasal Cannula 01/10/24 11:24 99.9 F H 84 20 156/94 H 92 Nasal Cannula 01/10/24 11:19 89 20 93 Nasal Cannula 01/10/24 10:31 Nasal Cannula 01/10/24 07:55 87 01/10/24 07:39 99.5 F 85 20 145/90 H 94 Nasal Cannula 01/10/24 07:22 83 18 94 Nasal Cannula O2 Flow Rate 01/10/24 15:44 1 01/10/24 15:14 2 01/10/24 11:24 2 01/10/24 11:19 1 01/10/24 10:31 1 01/10/24 07:55 01/10/24 07:39 2 01/10/24 07:22 2 PG Care Time/CCT Total # of Minutes Spent Total Time Spent with Patient: Total time spent is greater than 50% in coordination of care (as documented) at patient's floor/unit and/or counseling patient: Coding Level of Care Code 07118 SUB INP/OBS CARE 3/50MIN Diagnoses Multifocal pneumonia J18.9 Human metapneumovirus (hMPV) pneumonia J12.3 DANIELITO (acute kidney injury) N17.9 Chest pain R07.9 Tobacco abuse Z72.0 Alcohol abuse F10.10 HTN (hypertension) I10 Hypercholesterolemia E78.00
[2024-01-11 05:14] LABS: Basophils # (auto) 0.05 K/uL (0.00-0.20); Basophils % (auto) 0.4 %; Eosinophils # (auto) 0.01 K/uL (0.00-0.50); Eosinophils % (auto) 0.1 %; Hemoglobin 12.6 g/dl (14.0-18.0); Lymphocytes # (auto) 0.85 K/uL (1.20-3.40); Lymphocytes % (auto) 6.3 %; Mean Corpuscular Hemoglobin 30.6 pg (25.0-34.0); Mean Corpuscular Hgb Conc 33.2 g/dL (32.0-36.0); Mean Corpuscular Volume 92.2 fL (80.0-100.0); Mean Platelet Volume 9.7 fL (9.4-12.4); Monocytes # (auto) 1.99 K/uL (0.11-0.59); Monocytes % (auto) 14.7 %; Neutrophils # (auto) 10.21 K/uL (1.40-6.50); Neutrophils % (auto) 75.5 %; Platelet Count 326 K/uL (130-400); RDW Coefficient of Variation 13.1 % (11.5-14.5); Red Blood Count 4.12 M/uL (4.70-6.10); White Blood Count 13.51 K/ul (4.8-10.8)
[2024-01-11 05:26] LABS: BUN Creatinine Ratio 15.2 (10-20); Calcium 8.9 mg/dl (8.6-10.3); Creatinine Clr Calc Pharmacy 91.5 ml/min; Est GFR (African American) 74.5 ml/min; Est GFR (Non-African American) 64.2 ml/min; Potassium 3.6 mmol/L (3.5-5.1)
[2024-01-11] MEDS ORDERED: Nursing to Pharmacy Communication ONE (09:42)
--- NOTE | 2024-01-11 17:01 | Hospitalist Progress Note ---
Date of Service January 11, 2024 Assessment & Plan (1) Multifocal pneumonia: Plan: Appreciate pulmonology consult (consulted due to cavitation) - plan to switch to Augmentin once definitively improving - anticipate course of 7days per pulm Follow up CT imaging in 10 to 12 weeks to document resolution. Continue Unasyn -continue to follow, seems to be overall improving though has been borderline febrile MRSA nares negative Slowly weaning oxygen - Will obtain formal two-step prior to discharge Outpatient sleep study recommended by pulm (2) Human metapneumovirus (hMPV) pneumonia: Plan: Likely initially a viral insult, with secondary bacterial overgrowth (3) DANIELITO (acute kidney injury): Plan: Improving on IV fluids. Continue fluids, continue to trend (4) Chest pain: Plan: Suspect pleurisy +/- MSK pain due to pneumonia Continue to avoid NSAIDs while Cr elevated Continue acetaminophen 650mg q6h Troponin negative (5) Tobacco abuse: Plan: Would definitely benefit from smoke cessation (6) Alcohol abuse: Plan: Last drink was on 01/01 No signs/symptoms of withdrawal at this time (7) HTN (hypertension): Plan: Continue off lisinopril due to DANIELITO, hypotensive on day of admission DANIELITO improving on 01/10 with BPs elevated - may consider reinitiation of lisin opril 01/11 (8) Hypercholesterolemia: Plan: Continue statin Plan VTE prophylaxis - Lovenox 40 mg subcu daily Diet - heart healthy Disposition -hopefully home soon Admission and Anticipated Discharge Date Admission Date: January 07, 2024 Subjective Still having difficulty with breathing, coughing fits, and chest discomfort with coughing Review of Systems Review of Systems: Per subjective Physical Exam Physical Exam: General: Ill but nontoxic-appearing, NAD Cardiovascular: RRR, no M/R/G Pulmonary: Decreased breath sounds with minimal aeration, scattered rhonchi, no discrete wheezing Extremities: Moving all extremities Integumentary: No suspicious rash or lesion on exposed skin Neurologic: AAOx3, no focal deficits Psychiatric: Appropriate mood/affect Results & Data Results & Data Vital Signs (Past 12 Hours) Vital Signs Temp Pulse Pulse Resp BP BP Pulse Ox 01/11/24 16:21 37.8 C H 98 H 17 169/100 H 92 01/11/24 15:49 91 H 18 92 01/11/24 15:05 93 H 01/11/24 11:33 37.4 C 85 19 154/92 H 93 01/11/24 11:26 88 18 92 01/11/24 09:35 01/11/24 08:14 37.3 C 88 19 176/99 H 91 01/11/24 07:48 83 01/11/24 07:34 90 16 94 O2 Del Method O2 Flow Rate 01/11/24 16:21 Nasal Cannula 2 01/11/24 15:49 Nasal Cannula 2 01/11/24 15:05 01/11/24 11:33 Nasal Cannula, Nebulizer 01/11/24 11:26 Nasal Cannula 2 01/11/24 09:35 Nasal Cannula 1 01/11/24 08:14 Nasal Cannula 2 01/11/24 07:48 01/11/24 07:34 Nasal Cannula 1.5 Laboratory Results Labs reviewed this morning with WBC slight increase to 13.5, hemoglobin stable at 12.6, sodium normal at 136 with normal potassium, creatinine improved to 1.32, procalcitonin down trended to 1.8 PG Care Time/CCT Total # of Minutes Spent Total Time Spent with Patient: Total time spent is greater than 50% in coordination of care (as documented) at patient's floor/unit and/or counseling patient: Coding Level of Care Code 87922 SUB INP/OBS CARE 3/50MIN Diagnoses Multifocal pneumonia J18.9 Human metapneumovirus (hMPV) pneumonia J12.3 DANIELITO (acute kidney injury) N17.9 Chest pain R07.9 Tobacco abuse Z72.0 Alcohol abuse F10.10 HTN (hypertension) I10 Hypercholesterolemia E78.00
[2024-01-12 04:57] LABS: Basophils # (auto) 0.04 K/uL (0.00-0.20); Basophils % (auto) 0.3 %; Eosinophils # (auto) 0.01 K/uL (0.00-0.50); Eosinophils % (auto) 0.1 %; Hemoglobin 12.6 g/dl (14.0-18.0); Immature Granulocytes # (auto) 0.62 K/uL (0.01-0.20); Immature Granulocytes % (auto) 4.5 %; Lymphocytes # (auto) 1.06 K/uL (1.20-3.40); Lymphocytes % (auto) 7.6 %; Mean Corpuscular Hemoglobin 31.2 pg (25.0-34.0); Mean Corpuscular Hgb Conc 34.1 g/dL (32.0-36.0); Mean Corpuscular Volume 91.6 fL (80.0-100.0); Mean Platelet Volume 9.6 fL (9.4-12.4); Monocytes # (auto) 1.83 K/uL (0.11-0.59); Monocytes % (auto) 13.2 %; Neutrophils # (auto) 10.34 K/uL (1.40-6.50); Neutrophils % (auto) 74.3 %; Platelet Count 389 K/uL (130-400); RDW Coefficient of Variation 13.4 % (11.5-14.5); RDW Standard Deviation 45.5 fL (36.4-46.3); Red Blood Count 4.04 M/uL (4.70-6.10)
[2024-01-12 05:13] LABS: BUN Creatinine Ratio 13.9 (10-20); Calcium 8.9 mg/dl (8.6-10.3); Creatinine Clr Calc Pharmacy 102.7 ml/min; Est GFR (African American) 81.9 ml/min; Est GFR (Non-African American) 70.7 ml/min; Potassium 3.4 mmol/L (3.5-5.1)
[2024-01-12] MEDS: POTASSIUM CHLORIDE CRTAB 20 MEQ TABCR PO STA (07:57)
--- NOTE | 2024-01-12 11:38 | XRay Report ---
XR chest 1V portable CLINICAL HISTORY: worsening O2, febrile, hx PNA and effusion TECHNIQUE: Single frontal radiograph of the chest was obtained. Comparison: Comparison is made to chest radiograph 01/08/2024 FINDINGS: No lines and tubes are seen. The cardiomediastinal silhouette is normal. Right greater than left lowe r lung airspace opacities are seen. Neurovascular prominence is seen. There is a moderate to large ri ght and small left pleural effusion. IMPRESSION: 1. Moderate large right and small left pleural effusion with underlying atelectasis. Superimposed pn eumonia cannot be excluded. 2. Cardiomegaly and mild pulmonary edema. ACT 112: Negative or not required by law. Electronically signed by: Сергей Fitzpatrick M.D. 01/12/2024 11:36 AM
--- NOTE | 2024-01-12 13:17 | CT Scan Report ---
CT chest diagnostic wo con CLINICAL HISTORY: eval parapneumonic effusion TECHNIQUE: Multidetector row helical CT of the chest was performed. Coronal and sagittal reformations were obtained. Automated dose lowering techniques and/or adjustment according to patient size were u tilized for this exam. CT DOSE: 899.64 mGy.cm Comparison: Comparison is made to CT chest 01/07/2024 and chest radiograph 01/12/2024 FINDINGS: Lungs and pleura: Large right and moderate left pleural effusions are seen with associated atelectasi s. Underlying nodular densities are suggested in the left lower lobe. Heart and pericardium: Heart size is normal. No pericardial effusion. Vessels: Mild atherosclerotic changes in the aorta and coronary arteries. Mediastinum and radha: Mediastinal nodes measure up to 12 mm in diameter. Chest wall and lower neck: Gynecomastia is noted bilaterally. Abdomen: Unremarkable. Bones: Degenerative changes in the thoracic spine. IMPRESSION: Large right and moderate left pleural effusions with associated atelectasis are unchanged from radiog raph performed same day but increased from prior CT. Nodular appearing densities in the left lower jr ng may represent the infectious/inflammatory process seen on prior CT. Mediastinal lymphadenopathy is seen, possibly reactive. ACT 112: Negative or not required by law. Electronically signed by: Сергей Fitzpatrick M.D. 01/12/2024 1:15 PM
--- NOTE | 2024-01-12 15:30 | Hospitalist Progress Note ---
Date of Service January 12, 2024 Assessment & Plan (1) Multifocal pneumonia: Plan: Appreciate pulmonology consult (consulted due to cavitation) - on Unasyn with plan originally to switch to Augmentin once definitively improving. However patient with slight increase in O2 requirements with fevers overnight and now chest imaging demonstrating parapneumonic effusions right greater than left. Reached out to pulm for re-evaluation and awaiting their decision on how to best proceed. For now, will continue Unasyn. Tentatively follow up CT imaging in 10 to 12 weeks to document resolution, pending pulm plans for effusions MRSA nares negative Outpatient sleep study recommended by pulm (2) Human metapneumovirus (hMPV) pneumonia: Plan: Likely initially a viral insult, with secondary bacterial overgrowth (3) Parapneumonic effusion: (4) DANIELITO (acute kidney injury): Plan: Improving on IV fluids. Continue fluids, continue to trend (5) Chest pain: Plan: Suspect pleurisy +/- MSK pain due to pneumonia Continue to avoid NSAIDs with recent DANIELITO Continue acetaminophen 650mg q6h Troponin negative (6) Tobacco abuse: Plan: Would definitely benefit from smoke cessation (7) Alcohol abuse: Plan: Last drink was on 01/01 No signs/symptoms of withdrawal at this time (8) HTN (hypertension): Plan: Continue off lisinopril due to DANIELITO, hypotensive on day of admission DANIELITO improving with BPs elevated - may consider reinitiation of lisinopril 01/12 (9) Hypercholesterolemia: Plan: Continue statin (10) Hypokalemia: Plan: Repleted, will monitor and replete as indicated Plan VTE prophylaxis - Lovenox 40 mg subcu daily Diet - heart healthy Disposition - pending pulm plan for parapneumonic effusion Admission and Anticipated Discharge Date Admission Date: January 07, 2024 Subjective Still having difficulty with breathing, though feels it a bit better overall, still having coughing fits and chest discomfort from coughing. Feels his oxygenation and respiratory status worsens especially at nighttime. Review of Systems Review of Systems: Per subjective Physical Exam Physical Exam: General: Ill but nontoxic-appearing, NAD Cardiovascular: Tachycardic, regular rhythm, no M/R/G Pulmonary: Diminished breath sounds with minimal aeration, especially at bases and middle right lung, scattered rhonchi, no discrete wheezing Extremities: Moving all extremities Integumentary: No suspicious rash or lesion on exposed skin Neurologic: AAOx3, no focal deficits Psychiatric: Appropriate mood/affect Results & Data Results & Data Vital Signs (Past 12 Hours) Vital Signs Temp Pulse Pulse Pulse Pulse Pulse Pulse 01/12/24 15:17 01/12/24 11:48 01/12/24 11:36 104 H 108 H 101 H 101 H 99 H 01/12/24 11:34 37.3 C 01/12/24 11:18 01/12/24 08:25 01/12/24 08:24 105 H 01/12/24 08:01 37.1 C 01/12/24 07:23 01/12/24 04:00 Pulse Resp Resp Resp Resp Resp Resp 01/12/24 15:17 99 H 18 01/12/24 11:48 01/12/24 11:36 21 23 18 18 17 01/12/24 11:34 86 20 01/12/24 11:18 91 H 16 01/12/24 08:25 01/12/24 08:24 01/12/24 08:01 84 20 01/12/24 07:23 91 H 14 01/12/24 04:00 BP Pulse Ox Pulse Ox Pulse Ox Pulse Ox Pulse Ox Pulse Ox 01/12/24 15:17 90 01/12/24 11:48 01/12/24 11:36 85 L 91 87 L 90 86 L 01/12/24 11:34 166/103 H 88 L 01/12/24 11:18 94 01/12/24 08:25 01/12/24 08:24 01/12/24 08:01 169/92 H 93 01/12/24 07:23 93 01/12/24 04:00 176/90 H O2 Del Method O2 Flow Rate O2 Flow Rate O2 Flow Rate O2 Flow Rate O2 Flow Rate 01/12/24 15:17 Nasal Cannula 2 01/12/24 11:48 Nasal Cannula 2 01/12/24 11:36 2 3 1 2 01/12/24 11:34 Room Air 01/12/24 11:18 Nasal Cannula 3 01/12/24 08:25 Nasal Cannula 1 01/12/24 08:24 01/12/24 08:01 Nasal Cannula 3 01/12/24 07:23 Nasal Cannula 3 01/12/24 04:00 Laboratory Results Reviewed labs this morninguptrending WBC to 13.9, hemoglobin stable at 12.6, potassium low at 3.4. Creatinine normalized at 1.2 Diagnostic Findings Update chest x-ray ordered and obtained today with moderate to large right and small left pleural effusions, cardiomegaly and mild pulmonary edema Noncontrast chest CT obtained demonstrates large right and moderate left pleural effusions with associated atelectasis, nodular appearing densities in the left lower lung may represent infectious/inflammatory process seen on prior CT, mediastinal lymphadenopathy is seen PG Care Time/CCT Total # of Minutes Spent Total Time Spent with Patient: Total time spent is greater than 50% in coordination of care (as documented) at patient's floor/unit and/or counseling patient: Coding Level of Care Code 92545 SUB INP/OBS CARE 3/50MIN Diagnoses Multifocal pneumonia J18.9 Human metapneumovirus (hMPV) pneumonia J12.3 Parapneumonic effusion J18.9; J91.8 DANIELITO (acute kidney injury) N17.9 Chest pain R07.9 Tobacco abuse Z72.0 Alcohol abuse F10.10 HTN (hypertension) I10 Hypercholesterolemia E78.00 Hypokalemia E87.6
[2024-01-12] MEDS: LIDOCAINE 2% LOCAL 50 ML VIAL ONE (18:28)
[2024-01-12] MEDS ORDERED: LIDOCAINE 2% MPF LOCAL 5 ML VIAL INFIL ONE (18:31)
--- NOTE | 2024-01-12 18:34 | Pulmonology Progress Note ---
Date of Service January 12, 2024 Assessment & Plan (1) Multifocal pneumonia: (2) Human metapneumovirus (hMPV) pneumonia: Plan Impression: 48-year-old male with bilateral lower lobe pneumonia. He has now developed large pleural effusions. I attempted to place a pigtail catheter on the right in 2 separate locations however the patient's body habitus made this extremely difficult to get the wire to pass in both attempts did not result in the catheter in good position with drainage. The second attempt did result in some brisk bleeding which was controlled with local pressure. Recommendations: 1. Pneumonia: Continue Unasyn 2. Parapneumonic effusion: Discussed with hospitalist. He has failed 2 attempts at bedside ultrasound-guided percutaneous drainage largely due to body habitus. At this point in time, I would recommend that the patient be evaluated by interventional radiology to see if they can get a pigtail in 1 or both sides of the effusion. If he should develop hemodynamic instability, surgical chest tube could be placed on the right. Given his instrumentation and the bleeding associated with the last procedure, he is at risk for hemothorax and a repeat CBC will be ordered in a few hours as well as a chest x-ray. These recommendations were directly communicated to the hospitalist as well as to the patient and his family.. 3. No therapy indicated for human metapneumovirus. Admission and Anticipated Discharge Date Admission Date: January 07, 2024 Subjective Asked by hospitalist to reevaluate this patient with persistent fevers. He was seen previously for questionable cavitation. He has had persistent fevers despite antibiotics and a chest x-ray today demonstrated progressive pleural effusion confirmed on CT scan. Cannot rule out parapneumonic effusion Patient continues to feel poorly. He is experiencing some chest pain. Review of Systems Review of Systems: All systems reviewed & are unremarkable except as noted in Subjective Physical Exam Constitutional: WD/WN, vitals as above Neck: trachea midline, no thyromegaly Respiratory: no respiratory distress, no labored breathing and not tachypneic Auscultation: + diminished lung sounds Cardiovascular: RRR, no murmur, no edema Gastrointestinal (Abdomen): normal bowel sounds, soft, nontender, no hepatosplenomegaly Musculoskeletal: Extremities: extremities normal to inspection Skin: no rashes, warm and dry Lymphatic: no cervical lymphadenopathy Results & Data Results & Data Vital Signs (Past 12 Hours) Vital Signs Temp Pulse Pulse Pulse Pulse Pulse Pulse 01/12/24 15:56 104 H 01/12/24 15:36 37.9 C H 01/12/24 15:17 01/12/24 11:48 01/12/24 11:36 104 H 108 H 101 H 101 H 99 H 01/12/24 11:34 37.3 C 01/12/24 11:18 01/12/24 08:25 01/12/24 08:24 105 H 01/12/24 08:01 37.1 C 01/12/24 07:23 Pulse Resp Resp Resp Resp Resp Resp 01/12/24 15:56 01/12/24 15:36 97 H 16 01/12/24 15:17 99 H 18 01/12/24 11:48 01/12/24 11:36 21 23 18 18 17 01/12/24 11:34 86 20 01/12/24 11:18 91 H 16 01/12/24 08:25 01/12/24 08:24 01/12/24 08:01 84 20 01/12/24 07:23 91 H 14 BP BP Pulse Ox Pulse Ox Pulse Ox Pulse Ox Pulse Ox 01/12/24 15:56 01/12/24 15:36 176/96 H 92 01/12/24 15:17 90 01/12/24 11:48 01/12/24 11:36 85 L 91 87 L 90 01/12/24 11:34 166/103 H 88 L 01/12/24 11:18 94 01/12/24 08:25 01/12/24 08:24 01/12/24 08:01 169/92 H 93 01/12/24 07:23 93 Pulse Ox O2 Del Method O2 Flow Rate O2 Flow Rate O2 Flow Rate O2 Flow Rate O2 Flow Rate 01/12/24 15:56 01/12/24 15:36 Nasal Cannula 2 01/12/24 15:17 Nasal Cannula 2 01/12/24 11:48 Nasal Cannula 2 01/12/24 11:36 86 L 2 3 1 2 01/12/24 11:34 Room Air 01/12/24 11:18 Nasal Cannula 3 01/12/24 08:25 Nasal Cannula 1 01/12/24 08:24 01/12/24 08:01 Nasal Cannula 3 01/12/24 07:23 Nasal Cannula 3 Critical Care Results & Data Vital Signs (Past 12 Hours) Vital Signs Temp Pulse Pulse Pulse Pulse Pulse Pulse 01/12/24 15:56 104 H 01/12/24 15:36 37.9 C H 01/12/24 15:17 01/12/24 11:48 01/12/24 11:36 104 H 108 H 101 H 101 H 99 H 01/12/24 11:34 37.3 C 01/12/24 11:18 01/12/24 08:25 01/12/24 08:24 105 H 01/12/24 08:01 37.1 C 01/12/24 07:23 Pulse Resp Resp Resp Resp Resp Resp 01/12/24 15:56 01/12/24 15:36 97 H 16 01/12/24 15:17 99 H 18 01/12/24 11:48 01/12/24 11:36 21 23 18 18 17 01/12/24 11:34 86 20 01/12/24 11:18 91 H 16 01/12/24 08:25 01/12/24 08:24 01/12/24 08:01 84 20 01/12/24 07:23 91 H 14 BP BP Pulse Ox Pulse Ox Pulse Ox Pulse Ox Pulse Ox 01/12/24 15:56 01/12/24 15:36 176/96 H 92 01/12/24 15:17 90 01/12/24 11:48 01/12/24 11:36 85 L 91 87 L 90 01/12/24 11:34 166/103 H 88 L 01/12/24 11:18 94 01/12/24 08:25 01/12/24 08:24 01/12/24 08:01 169/92 H 93 01/12/24 07:23 93 Pulse Ox O2 Del Method O2 Flow Rate O2 Flow Rate O2 Flow Rate O2 Flow Rate O2 Flow Rate 01/12/24 15:56 01/12/24 15:36 Nasal Cannula 2 01/12/24 15:17 Nasal Cannula 2 01/12/24 11:48 Nasal Cannula 2 01/12/24 11:36 86 L 2 3 1 2 01/12/24 11:34 Room Air 01/12/24 11:18 Nasal Cannula 3 01/12/24 08:25 Nasal Cannula 1 01/12/24 08:24 03/24/24 08:01 Nasal Cannula 3 01/12/24 07:23 Nasal Cannula 3 Lab & Micro Results (Past 24 Hours) RBC 4.04 M/uL (4.70-6.10) L 01/12/24 WBC 13.90 K/ul (4.8-10.8) H 01/12/24 Hgb 12.6 g/dl (14.0-18.0) L 01/12/24 Hct 37.0 % (42.0-52.0) L 01/12/24 MCV 91.6 fL (80.0-100.0) 01/12/24 MCH 31.2 pg (25.0-34.0) 01/12/24 MCHC 34.1 g/dL (32.0-36.0) 01/12/24 RDW Standard Deviation 45.5 fL (36.4-46.3) 01/12/24 RDW Coefficient of Variation 13.4 % (11.5-14.5) 01/12/24 Plt Count 389 K/uL (130-400) 01/12/24 MPV 9.6 fL (9.4-12.4) 01/12/24 Neutrophils (%) (Auto) 74.3 % 01/12/24 Lymphocytes (%) (Auto) 7.6 % 01/12/24 Monocytes # (Auto) 1.83 K/uL (0.11-0.59) H 01/12/24 Eosinophils # (Auto) 0.01 K/uL (0.00-0.50) 01/12/24 Immature Granulocyte % (Auto) 4.5 % 01/12/24 Neutrophils # (Auto) 10.34 K/uL (1.40-6.50) H 01/12/24 Lymphocytes # (Auto) 1.06 K/uL (1.20-3.40) L 01/12/24 Monocytes # (Auto) 1.83 K/uL (0.11-0.59) H 01/12/24 Eosinophils # (Auto) 0.01 K/uL (0.00-0.50) 01/12/24 Basophils # (Auto) 0.04 K/uL (0.00-0.20) 01/12/24 Immature Granulocyte # (Auto) 0.62 K/uL (0.01-0.20) H 01/11 Na 138 mmol/L (136-145) 01/12/24 K 3.4 mmol/L (3.5-5.1) L 01/12/24 Cl 100 mmol/L (98-107) 01/12/24 CO2 30 mmol/L (21-32) 01/12/24 Anion Gap 8 (3-11) 01/12/24 BUN 17 mg/dl (6-23) 01/12/24 Creatinine 1.22 mg/dl (0.6-1.4) 01/12/24 Estimated GFR ( Amer) 81.9 ml/min 01/12/24 Estimated GFR (Non-Af Amer) 70.7 ml/min 01/12/24 BUN/Creatinine Ratio 13.9 (10-20) 01/12/24 Glu 110 mg/dl (70-99(Fasting)) H 01/12/24 Ca 8.9 mg/dl (8.6-10.3) 01/12/24 Calcium Level 8.9 mg/dl (8.6-10.3) 01/12/24 04:08 Diagnostic Findings (Past 24 Hours) Chest X-Ray 01/12/24 07:43 XR chest 1V portable CLINICAL HISTORY: worsening O2, febrile, hx PNA and effusion TECHNIQUE: Single frontal radiograph of the chest was obtained. Comparison: Comparison is made to chest radiograph 01/08/2024 FINDINGS: No lines and tubes are seen. The cardiomediastinal silhouette is normal. Right greater than left lower lung airspace opacities are seen. Neurovascular prominence is seen. There is a moderate to large right and small left pleural effusion. IMPRESSION: 1. Moderate large right and small left pleural effusion with underlying atelectasis. Superimposed pneumonia cannot be excluded. 2. Cardiomegaly and mild pulmonary edema. ACT 112: Negative or not required by law. Electronically signed by: Сергей Fitzpatrick M.D. 01/12/2024 11:[address] 01/12/24 12:19 CT chest diagnostic wo con CLINICAL HISTORY: eval parapneumonic effusion TECHNIQUE: Multidetector row helical CT of the chest was performed. Coronal and sagittal reformations were obtained. Automated dose lowering techniques and/or adjustment according to patient size were utilized for this exam. CT DOSE: 899.64 mGy.cm Comparison: Comparison is made to CT chest 01/07/2024 and chest radiograph 01/12/2024 FINDINGS: Lungs and pleura: Large right and moderate left pleural effusions are seen with associated atelectasis. Underlying nodular densities are suggested in the left lower lobe. Heart and pericardium: Heart size is normal. No pericardial effusion. Vessels: Mild atherosclerotic changes in the aorta and coronary arteries. Mediastinum and radha: Mediastinal nodes measure up to 12 mm in diameter. Chest wall and lower neck: Gynecomastia is noted bilaterally. Abdomen: Unremarkable. Bones: Degenerative changes in the thoracic spine. IMPRESSION: Large right and moderate left pleural effusions with associated atelectasis are unchanged from radiograph performed same day but increased from prior CT. Nodular appearing densities in the left lower lung may represent the in fectious/inflammatory process seen on prior CT. Mediastinal lymphadenopathy is seen, possibly reactive. ACT 112: Negative or not required by law. Electronically signed by: Сергей Fitzpatrick M.D. 01/12/2024 1:15 PM I & O Totals 24 Hours 01/11/24 01/12/24 01/13/24 06:59 06:59 06:59 Intake Total 3040 / 3040 3945.417 / 3945.417 1640.000 / 1640.000 Balance 3040 / 3040 3945.417 / 3945.417 1640.000 / 1640.000 Cumulative 01/07/24 13:58 thru 01/12/24 15:04 Intake Total 77422.749 Balance 70695.749 RT Ventilator Mngmt (Last Documented) Ventilator Ordered Settings Respiratory Rate [Exercise O2 23 01/12/24 11:36 Corrective 2] Respiratory Rate [Exercise O2 21 01/12/24 11:36 Corrective 1] Respiratory Rate [Resting 18 01/12/24 11:36 Corrective 2] Respiratory Rate [Resting 18 01/12/24 11:36 Corrective 1] Respiratory Rate [Resting] 17 01/12/24 11:36 Respiratory Rate 16 01/12/24 15:36 Ventilator - PT Measurements Respiratory Rate [Exercise O2 23 Corrective 2] Respiratory Rate [Exercise O2 21 Corrective 1] Respiratory Rate [Resting 18 Corrective 2] Respiratory Rate [Resting 18 Corrective 1] Respiratory Rate [Resting] 17 Respiratory Rate 16 PG Care Time/CCT Total # of Minutes Spent Total Time Spent with Patient: Total time spent is greater than 50% in coordination of care (as documented) at patient's floor/unit and/or counseling patient: Coding Level of Care Code 44789 SUB INP/OBS CARE 350MIN Diagnoses Multifocal pneumonia J18.9 Human metapneumovirus (hMPV) pneumonia J12.3
--- NOTE | 2024-01-12 18:42 | Procedure Note ---
Procedure Note Date of Service January 12, 2024 Note Procedure: Attempted 14 Maldivian pigtail catheter placement Indication: Probable parapneumonic effusion Consent risk and benefits were discussed with the patient. He agreed. Sandal Parts Assembler Dr. Matos Estimated blood loss: Less than 5 mL Anesthesia: 10 mL 2% lidocaine without epinephrine locally. Procedure: Patient was identified. Imaging studies had been independently reviewed. Risks and benefits discussed with the patient as well as with family. The patient was placed in a upright seated position. Thoracic ultrasound was performed posteriorly demonstrating bilateral pleural effusions although was difficult to visualize due to the patient's body habitus. A site appropriate on the right was marked as the CT scan demonstrated that appeared to be the largest effusion. The skin was anesthetized using lidocaine. A skin isaiah was made with scalpel. An 18-gauge needle was advanced over the rib into the pleural space. I was able to aspirate some cloudy fluid. A wire was passed through the needle. Passing the wire was somewhat difficult. We dilated the tract after the needle was removed leaving the wire in place. A 14 Maldivian skater catheter was then passed over the wire into the pleural space however I was unable to aspirate significant fluid despite multiple attempts at repositioning the catheter. The catheter was withdrawn. It was clotted with fat material. A second chest tube site was identified approximately 3 cm superior to the initial attempt. The same procedure was conducted. Again the 14 Maldivian skater catheter was placed however again it was unable to aspirate any fluid and it was removed. On r emoval, there was some brisk pulsatile bruit bleeding and direct compression was held for 2 minutes which resulted in hemostasis. A pressure dressing was applied. This point in time additional attempts at ultrasound-guided percutaneous tube placement are unlikely to be beneficial and given the bleeding associated with the last attempt are relatively contraindicated. Discussed with the [facility] . Would recommend consulting with interventional radiology. Will check a CBC and chest x-ray later this evening to ensure no significant hemothorax. If the patient were to become hemodynamically unstable or if the effusion significantly increased in size, surgical chest tube should be placed. The above recommendations and plan were discussed with the patient, family, and with the admitting hospitalist. Coding CPT Codes Pulmonary/Thoracic - Pulmonary and Thoracic: 03150 Tube thoracostomy ([id number]) [facility] [place] Codes (Charges) Pulmonary/Thoracic Procedure 1: Pulmonary and Thoracic: 25752 Tube thoracostomy
[2024-01-12] MEDS ORDERED: MoRPHine SULFATE 2 MG/ML CARP ONE (19:37)
[2024-01-12] MEDS: MoRPHine SULFATE 2 MG/ML CARP IV STA (19:41)
--- NOTE | 2024-01-12 19:42 | XRay Report ---
XR chest 1V portable CLINICAL HISTORY: hemothorax TECHNIQUE: Single frontal radiograph of the chest was obtained. Comparison: Comparison is made to chest radiograph 01/12/2024 FINDINGS: No lines and tubes are seen. The cardiomediastinal silhouette is obscured. Bilateral airspace opaciti es are seen. Large right and small left pleural effusion. IMPRESSION: Large right and small left pleural effusion with underlying airspace opacities. The left effusion is stable, the right is stable to mildly enlarged. ACT 112: Negative or not required by law. Electronically signed by: Сергей Fitzpatrick M.D. 01/12/2024 7:40 PM
[2024-01-12] MEDS: NOREPINEPHRINE/D5W 4 MG/250 ML IV ONE ×2 (19:54→21:45)
[2024-01-12] MEDS ORDERED: RAPID SEQUENCE INDUCTION BAG ONE (20:08)
[2024-01-12 20:09] LABS: iSTAT Allen Test Pass; iSTAT Art Bld Gas pCO2 Correct 75 mmHg (35-46); iSTAT Art Bld Gas pH Corrected 7.183 (7.35-7.45); iSTAT Arterial Blood Gas HCO3 28 meg/L (19-24); iSTAT Arterial Blood Gas pCO2 75 mmHg (35-46); iSTAT Arterial Blood Gas pH 7.18 (7.35-7.45); iSTAT Arterial Blood Gas pO2 58 mmHg (80-95); iSTAT Arterial Blood Gas pO2 C 58; iSTAT Carbon Dioxide 31 mmol/L (24-31); iSTAT Hematocrit 32 % (42-52); iSTAT Hemoglobin 10.9 g/dl (14.0-18.0); iSTAT Site L Radial; iSTAT Sodium 138 mmol/L (135-144)
[2024-01-12] MEDS: PROPOFOL IV EMULSION 10 MG/ML 100 ML VIAL IV ONE (20:11)
[2024-01-12] MEDS ORDERED: VECURONIUM BROMIDE 10 MG VIAL IV ONE (20:25)
[2024-01-12] MEDS ORDERED: SODIUM CHLORIDE 0.9% 1,000 ML IV SCH (20:30)
[2024-01-12] MEDS: fentaNYL citrate PF 100 MCG/2 ML VIAL ONE ×2 (20:53→22:12)
[2024-01-12 21:00] LABS: Hematocrit (blood only) 29.2 % (42.0-52.0); Hemoglobin 9.4 g/dl (14.0-18.0); Mean Corpuscular Hemoglobin 30.6 pg (25.0-34.0); Mean Corpuscular Hgb Conc 32.2 g/dL (32.0-36.0); Mean Corpuscular Volume 95.1 fL (80.0-100.0); Mean Platelet Volume 9.8 fL (9.4-12.4); Platelet Count 547 K/uL (130-400); RDW Coefficient of Variation 13.6 % (11.5-14.5); Red Blood Count 3.07 M/uL (4.70-6.10); White Blood Count 17.54 K/ul (4.8-10.8)
[2024-01-12 21:05] LABS: iSTAT Art Bld Gas pCO2 Correct 68 mmHg (35-46); iSTAT Art Bld Gas pH Corrected 7.188 (7.35-7.45); iSTAT Arterial Blood Gas HCO3 25 meg/L (19-24); iSTAT Arterial Blood Gas pCO2 63 mmHg (35-46); iSTAT Arterial Blood Gas pH 7.21 (7.35-7.45); iSTAT Arterial Blood Gas pO2 76 mmHg (80-95); iSTAT Arterial Blood Gas pO2 C 85; iSTAT Carbon Dioxide 27 mmol/L (24-31); iSTAT FiO2 100 %; iSTAT Hematocrit 25 % (42-52); iSTAT Hemoglobin 8.5 g/dl (14.0-18.0); iSTAT Potassium 4.3 mmol/L (3.3-5.0); iSTAT Site Art Line; iSTAT Sodium 136 mmol/L (135-144)
--- NOTE | 2024-01-12 21:07 | Procedure Note ---
Procedure Note Date of Service January 12, 2024 Note ARTERIAL LINE PROCEDURE NOTE: Procedure: Arterial Line Placement Attending: Dr. Gonzalez Givens Provider: LOC Sommer Indication: Monitoring on Pressors Anesthesia: None Line placed emergently in the setting of shock requiring massive transfusion and vasopressor support with need for continuous hemodynamic monitoring. A time-out was completed verifying correct patient, procedure, site, positioning, and implant(s) or special equipment if applicable. Allens test was performed to ensure adequate perfusion. Patients left wrist was prepped and draped in the usual sterile fashion. Ultrasound guidance was used to aid needle placement. A 20g Arrow arterial line was introduced into the left radial artery. Catheter was threaded, and the needle was removed with appropriate blood return. Good waveform was observed. The patient tolerated the procedure well. Confirmation of placement with ultrasound. Blood Loss: Minimal Complications: None Procedural Ultrasound Guidance: Procedure Date: 01/12/2024 Indication: Arterial line insertion Attending: Dr. Gonzalez Givens Provider: LOC Sommer Artery Identified: YES Line confirmed in Artery with ultrasound: Yes Complications: NONE Patient tolerated procedure: WELL Coding CPT Codes Tubes, Drains, and Vasc Access - Tubes, Drains, and Vasc Access: [id number] Arterial Cath/Cannulation Sampling/Monitoring/Transfusion ([id number]) Tubes, Drains, and Vasc Access - Tubes, Drains, and Vasc Access: [id number] Ultrasound Guidance For Vascular ([id number]) [facility] [place] Codes (Charges) Tubes, Drains, and Vasc Access Procedure 1: Tubes, Drains, and Vasc Access: [id number] Arterial Cath/Cannulation Sampling/Monitoring/Transfusion Procedure 2: Tubes, Drains, and Vasc Access: [id number] Ultrasound Guidance For Vascular
--- NOTE | 2024-01-12 21:07 | Critical Care Consultation ---
Date of Consultation January 12, 2024 Assessment & Plan (1) Hemorrhagic shock: 48-year-old male undergoing treatment for multifocal pneumonia with development of parapneumonic effusions who underwent attempt for pigtail placement earlier this afternoon which was unsuccessful. Following, patient appears to have developed a right hemothorax and was urgently transferred to the ICU following hemodynamic instability with tachycardia, respiratory failure, and hypotension. He underwent emergent intubation and, central line placement, A-line placement, and right surgical chest tube. He is currently undergoing massive transfusion protocol. Patient has been accepted to [facility] for IR capability and may need thoracic surgery. He is currently on Levophed drip and hemodynamically unstable. He is undergoing stat CT with contrast per [facility] supervisor boatbuilders wood request, and we will transfer emergently via [facility]. Further management in ICU pending transfer. CRITICAL CARE TIME - I have personally spent 65 minutes of critical care time in the direct management of this patient. This is a life/limb threatening event. This includes time spent evaluating patient, direct bedside care, chart review, placing orders, interpretation of diagnostic studies, discussion with consultants, patient, and family members, as well as other required patient management activities. This time is exclusive of all separately billable procedures, and teaching time and separate from and in addition to any other critical care service time. (2) Multifocal pneumonia: (3) Human metapneumovirus (hMPV) pneumonia: (4) Parapneumonic effusion: (5) Hemothorax: (6) Acute hypoxic on chronic hypercapnic respiratory failure: History of Present Illness Attending Physician: Ann Mtz MD History of Present Illness Patient is a 48-year-old male with past medical history of tobacco abuse, alcohol abuse who was admitted on 01/06 and undergoing treatment for multifocal pneumonia, and patient positive for metapneumovirus who developed large pleural effusions and pigtail placement was attempted twice earlier this afternoon. Unfortunately, pigtail placement was unsuccessful. Code purple was called earlier this evening, as patient was noted to be tachypneic and tachycardic. Chest x-ray showed significant increase and the right effusion, and there was high suspicion for development of hemothorax. Patient continued to hemodynamically decompensate and was emergently intubated, with central line and A-line placed along with right surgical chest tube 28 Malay. He underwent massive transfusion and is currently on Levophed drip. Patient now undergoing transfer to tertiary care center, [facility], with IR capability. Allergies Allergy/AdvReac Type Severity Reaction Status Date / Time No Known Allergies Allergy Unverified 01/07/24 16:49 Home Medications Medication Instructions Recorded Confirmed Type Kay 1 tab PO DAILY 01/07/24 01/07/24 History albuterol sulfate 90 mcg/actuation 2 puff inhalation Q4H PRN Other 01/07/24 01/07/24 History aerosol inhaler amoxicillin 875 mg-potassium 1 tab PO BID 01/07/24 01/07/24 History clavulanate 125 mg tablet atorvastatin 20 mg tablet 20 mg PO DAILY 01/07/24 01/07/24 History azithromycin 250 mg tablet 250 mg PO UD 01/07/24 01/07/24 History benzonatate 100 mg capsule 100 mg PO TID cough 01/07/24 01/07/24 History famotidine 20 mg tablet (Pepcid) 20 mg PO DAILY 01/07/24 01/07/24 History lisinopril 10 mg tablet 10 mg PO DAILY 01/07/24 01/07/24 History prednisone 20 mg tablet 20 mg PO UD 01/07/24 01/07/24 History Patient History Medical History (Updated 01/12/24 @ 21:25 by LOC Villasenor) Hypercholesterolemia HTN (hypertension) Surgical History (Updated 01/07/24 @ 15:53 by Mike Pimentel PA-C) No pertinent past surgical history Social History Smoking Status: Current every day smoker Tobacco Type: Cigarettes Cigarettes Per Day: 10; Do You Dip or Chew Tobacco: No; Hx Alcohol Use: Yes Alcohol type: beer Hx Substance Use: No Preferred Language: German Communication Ability: Effective Coarse Wire Drawer Required: No Beliefs That Will Affect Care: None Current Living Situation: Spouse and Parent Feels Safe at Home: Yes Assistive Devices: None Review of Systems Review of Systems: Unobtainable due to endotracheal tube Physical Exam Constitutional: + obese and + mechanically ventilated Eyes: PERRL, conjunctivae normal, anicteric sclerae ENMT: external ear and nose normal, oropharynx normal Neck: trachea midline, no thyromegaly Respiratory: Coarse crackles bilateral, symmetrical chest wall movement. Mechanically ventilated Cardiovascular: Tachycardic, regular rhythm. S1-S2 auscultated, no murmur, no peripheral edema Gastrointestinal (Abdomen): Abdomen obese, nontender, bowel sounds auscultated all 4 quadrants Skin: no rashes, warm and dry Neurologic: Unable to assess due to sedation Psychiatric: Unable to assess due to sedation Genitourinary: Indwelling Dill catheter present Results & Data Results & Data Vital Signs (Past 12 Hours) Vital Signs Temp Pulse Pulse Pulse Pulse Pulse Pulse 01/12/24 15:56 104 H 01/12/24 15:36 37.9 C H 01/12/24 15:17 01/12/24 11:48 01/12/24 11:36 104 H 108 H 101 H 101 H 99 H 01/12/24 11:34 37.3 C 01/12/24 11:18 Pulse Resp Resp Resp Resp Resp Resp 01/12/24 15:56 01/12/24 15:36 97 H 16 01/12/24 15:17 99 H 18 01/12/24 11:48 01/12/24 11:36 21 23 18 18 17 01/12/24 11:34 86 20 01/12/24 11:18 91 H 16 BP BP Pulse Ox Pulse Ox Pulse Ox Pulse Ox Pulse Ox 01/12/24 15:56 01/12/24 15:36 176/96 H 92 01/12/24 15:17 90 01/12/24 11:48 01/12/24 11:36 85 L 91 87 L 90 01/12/24 11:34 166/103 H 88 L 01/12/24 11:18 94 Pulse Ox O2 Del Method O2 Flow Rate O2 Flow Rate O2 Flow Rate O2 Flow Rate O2 Flow Rate 01/12/24 15:56 01/12/24 15:36 Nasal Cannula 2 01/12/24 15:17 Nasal Cannula 2 01/12/24 11:48 Nasal Cannula 2 01/12/24 11:36 86 L 2 3 1 2 01/12/24 11:34 Room Air 01/12/24 11:18 Nasal Cannula 3 Coding Level of Care Code 14258 CRITICAL CARE 1ST 30-74M Diagnoses Hemorrhagic shock R57.8 Multifocal pneumonia J18.9 Human metapneumovirus (hMPV) pneumonia J12.3 Parapneumonic effusion J18.9; J91.8 Hemothorax J94.2 Acute hypoxic on chronic hypercapnic respiratory failure J96.01; J96.12
[2024-01-12] MEDS ORDERED: SODIUM CHLORIDE 0.9% 250 ML IV PRN (21:08)
[2024-01-12 21:14] LABS: Basophils # (auto) 0.05 K/uL (0.00-0.20); Basophils % (auto) 0.3 %; Eosinophils # (auto) 0.05 K/uL (0.00-0.50); Eosinophils % (auto) 0.3 %; Immature Granulocytes # (auto) 1.38 K/uL (0.01-0.20); Immature Granulocytes % (auto) 7.9 %; Monocytes # (auto) 1.74 K/uL (0.11-0.59); Monocytes % (auto) 9.9 %; Neutrophils # (auto) 12.22 K/uL (1.40-6.50); Neutrophils % (auto) 69.6 %; Polychromasia 1+
--- NOTE | 2024-01-12 21:16 | Procedure Note ---
Procedure Note Date of Service January 12, 2024 Note INTUBATION PROCEDURE NOTE: Provider: Wiley Matos MD A time-out was completed verifying correct patient, procedure, site, positioning. Patient was evaluated and required intubation for hemodynamic instability in the setting of probable hemothorax. Sedative agent used: Etomidate 40 mg, propofol 5 mL Paralysis agent used: None Emergent consent was implied given patients rapidly declining clinical status and need for airway protection. [ The patient was prepared in the appropriate fashion. Sedation was achieved utilizing appropriate and etomidate. The patient was preoxygenated with noninvasive positive pressure ventilation with an FiO2 of 100%. After sedation was achieved, video laryngoscopy was performed with a glide scope. The cords were easily visualized. A 7.5 endotracheal tube was placed under video larynx scopic guidance to 22 cm at the lip. The stylette was removed and balloon was inflated with 10mL of air. Appropriate Colorimetric change was appreciated. Bilateral breath sounds were heard without air sounds in the abdomen. Patient did desaturate transiently to about 80% which resolved with Ambu ventilation postintubation Post procedure chest x-ray demonstrated the endotracheal tube to be in good p osition. Coding CPT Codes Resuscitation - Resuscitation: 35331 Endotracheal Intubation, emergency ([id number]) [facility] [place] Procedure Codes (Charges) Resuscitation Resuscitation: 36722 Endotracheal Intubation, emergency
[2024-01-12 21:17] LABS: Albumin Level 2.4 gm/dl (3.4-5.0); BUN Creatinine Ratio 12.7 (10-20); Bilirubin,Total 0.7 mg/dl (0.2-1.0); Calcium 7.9 mg/dl (8.6-10.3); Creatinine Clr Calc Pharmacy 80.1 ml/min; Est GFR (African American) 59.9 ml/min; Est GFR (Non-African American) 51.7 ml/min; Globulin 2.5 gm/dl (2.5-4.0); Potassium 4.3 mmol/L (3.5-5.1); Total Protein 4.9 gm/dl (6.0-8.3)
--- NOTE | 2024-01-12 21:19 | Procedure Note ---
Procedure Note Date of Service January 12, 2024 Note CENTRAL LINE PROCEDURE NOTE: Procedure: Central Line Placement Provider: Wiley Matos MD Indication: Central Drug Administration, Poor Venous Access, Multiple Lab Draws Necessary, etc. Anesthesia: None Site: Right subclavian Procedure was emergent. The patient just been intubated and was hemodynamically unstable requiring pressors. Family was not immediately available. A time-out was completed verifying correct patient, procedure, site, positioning, and implants(s) or special equipment if applicable. Landmarks were palpable. The patient's right supraclavicular and infraclavicular regions were cleaned with chlorhexidine and allowed to completely dry. Sterile field was established. Full barrier precautions were in place. After landmarks were identified, an 18-gauge needle was used to cannulate the right subclavian vein. Dark blood flow was returned. The syringe was removed from the needle leaving the needle in place. A wire was passed through the needle into the vein without difficulty. The needle was removed leaving the wire in place. A scalpel was used to make a skin neck. A dilator was passed over the wire dilating the tract without difficulty. The wire continued to move freely. The dilator was then removed and a previously flushed triple-lumen catheter was then passed over the wire into the vein. Was placed at the hub. All ports flushed and kennedi easily. A Biopatch was placed and a sterile dressing applied after the catheter was sutured in place. Post procedure x-ray was completed, placement was appropriate and no pneumothorax was noted. Estimated blood loss: 10 mL Coding CPT Codes Tubes, Drains, and Vasc Access - Tubes, Drains, and Vasc Access: [id number] Place catheter in vein superior or inferior vena cava ([id number]) [facility] [place]Charges) Tubes, Drains, and Vasc Access Procedure 1: Tubes, Drains, and Vasc Access: [id number] Place catheter in vein superior or inferior vena cava
--- NOTE | 2024-01-12 21:22 | Communication Note ---
Date of Service: January 12, 2024 0726 PM Called to patient's bedside for HR 130s and sats in low 80s on 4LNC, while patient complained of worsening dyspnea, chest discomfort and diaphoresis. Chest tube had been attempted this afternoon for worsening effusion without successful placement. Patient notes worsening of symptoms since procedure. Gen: Acutely distressed, diaphoretic, unable to speak in full sentences Card: Tachycardic, regular Resp: Tachypneic, labored, lung sounds diminished on right, worse in base, no appreciable wheezing STAT CXR ordered from bedside. BP noted to be 140s/80s on assessment, 2 mg IV Morphine and 1L NSS ordered. Prior to administration of prior previously stated measures patient started coughing up blood, episodes of hemoptysis continued and code inder was called. Decision was made to transfer patient to the ICU for ongoing care. Resident Activity Tracking Resident Involvement: Resident Care Provided Care Provided: Adult Hospital Medicine (night)
--- NOTE | 2024-01-12 21:24 | Procedure Note ---
Procedure Note Date of Service January 12, 2024 Note Procedure: 20 Surinamese chest tube Indication: Hemothorax Procedure was emergent. Patient was intubated and on the ventilator and unable to provide verbal or written consent. No family immediately available. Television Maintenance Man Dr. Matos Estimated blood loss: Less than 5 mL Anesthesia: Patient was maintained on fentanyl infusion and propofol infusion Procedure: The patient was admitted with pneumonia and developed what appeared to be a parapneumonic effusion. He underwent attempted 14 Surinamese pigtail catheter placement earlier today x 2 in the right posterior aspect of the chest. These catheter placements were unsuccessful and the second catheter placement resulted in some brisk pulsatile bleeding which was controlled with application of pressure for 5 minutes. The patient several hours later developed tachycardia, hypotension, diaphoresis, and hypoxemia and was transferred to the ICU. Chest x-ray demonstrated opacification of the right hemithorax. He had been intubated and a central line was placed. He was on pressors and receiving emergency transfusion. Chest tube placement was indicated. Patient was in the supine position. The right arm was extended superiorly. The skin in the anterior and mid axillary region lateral to the nipple was prepped using chlorhexidine. Sterile field was established. Using a 10 blade scalpel, a 2 cm incision was made approximately 2 cm below the nipple line in the anterior axillary line. Blunt dissection was carried down with my forefinger and Jaki clamps until I was able to palpate the rib. Using a curved Jaki clamp, I made a pleural out AMI between the ribs. This did result in return of some serosanguineous fluid. The Jaki clamp was removed and I was able to use my finger to dilate the tract and palpate the pleura auto me. My finger passed between the ribs and I was able to sweep in 360 degrees to ensure no significant adhesions. The lung was not adherent. Initially I placed a 20 Surinamese chest tube but got minimal return so we elected to go to a 28 Surinamese. This was passed along the tract and directed through the pleura to me with my finger. The tube was directed superiorly and advanced and connected to 20 cm wall suction. The catheter was sutured in place with two 3-0 silk sutures and dressing applied. A postprocedure chest x-ray was obtained which revealed the tube to be within the thorax however there are persistent airspace opacities throughout the right hemithorax likely representing retained clot. The patient remained hemodynamically stable and will be transferred to an tertiary facility for consideration of interventional radiology or thoracic surgical evaluation. Coding CPT Codes Pulmonary/Thoracic - Pulmonary and Thoracic: 91007 Tube thoracostomy ([id number]) [facility] [place] (Charges) Pulmonary/Thoracic Procedure 1: Pulmonary and Thoracic: 80827 Tube thoracostomy
[2024-01-12 21:27] LABS: Troponin I High Sensitivity 34.8 pg/ml (0-20)
[2024-01-12] MEDS: OPTIRAY 320 100ml IV ONE (21:30)
[2024-01-12 21:43] LABS: Fibrinogen > 860 mg/dl (184-400); INR 1.1 (0.9-1.1); Partial Thromboplastin Ratio 0.9; Partial Thromboplastin Time 25 Seconds (21-31); Prothrombin Time 11.7 Seconds (9.0-12.0)
[2024-01-12 21:46] LABS: D Dimer 8070 ug/L FEU (0-500)
[2024-01-12 21:47] LABS: Hematocrit (blood only) 29.3 % (42.0-52.0); Hemoglobin 9.5 g/dl (14.0-18.0)
[2024-01-12] MEDS ORDERED: STAT IV Infusion **Titration per Protocol STA ×3 (21:49→22:22)
[2024-01-12] MEDS ORDERED: fentaNYL BOLUS from BAG IV PRN (21:49)
--- NOTE | 2024-01-12 21:57 | Communication Note ---
Date of Service: January 12, 2024 Attended code inder. Hypotensive, tachycardia and hypoxic since attempted 14 Spanish pigtail catheter placement earlier today therefore concern for unstable hemothorax. Patient was transferred to ICU. Massive transfusion protocol ordered. Asked by ICU WATCHER LOOKOUT TOWER to help facilitate transfer while patient was intubated, actively resuscitated and surgical drain placed by pulmonology. Discussed care with his family (including ) and requested transfer to [facility] [place]. Discussed care with [facility] (Dr King, Sorting Livestock Worker), [facility] [place] interventional pulmonology, Mike MONTERROSO (ICU) and Dr Matos (pulmonology) and accepted for transfer to [facility] [place] via [facility].
[2024-01-12] MEDS ORDERED: fentaNYL citrate 2,500 MCG/250 ML BAG IV SCH (22:00)
[2024-01-12] MEDS ORDERED: SODIUM BICARB 8.4% INJ 50 MEQ/50 ML SYR IV ONE ×2 (22:02→22:11)
[2024-01-12] MEDS: VASOPRESSIN 20 UNITS in 0.9 % SODIUM CHLORIDE 100 ML IV SCH (22:08)
[2024-01-12] MEDS: fentaNYL citrate PF 100 MCG/2 ML VIAL IV STA (22:09)
--- NOTE | 2024-01-12 22:09 | CT Scan Report ---
Exam(s): CT CHEST With Contrast IV Amt: 94ml opti 320 EXAM: CT Chest With Intravenous Contrast CLINICAL HISTORY: Reason for exam: s/p evalaute for intrathoracic extravasation. TECHNIQUE: Axial computed tomography images of the chest with intravenous contrast. CTDI is 38.43 mGy and DLP is 1110.09 mGy-cm. Automated exposure control was utilized for the study. A dose lowering technique was utilized adhering to the principles of ALARA. CONTRAST: Patient received 94ml opti 320 of IV contrast COMPARISON: 01/12/2024. FINDINGS: Lungs: The lung bases are not entirely included in the salae-hs-wfan. There is multilobar bilateral atelectasis, more severe throughout the bilateral lower lobes. No mass. Pleural space: There is a very large right-sided pleural effusion with loculated pattern and areas of heterogeneous density within the posterior and right anterior aspect suggestive of hemothorax. There is moderate left-sided pleural effusion with loculated pattern. No pneumothorax. Heart: Unremarkable. No cardiomegaly. No significant pericardial effusion. No significant coronary artery calcifications. Bones/joints: Nonspecific degenerative disease of the spine. No acute fracture. No dislocation. Soft tissues: Unremarkable. Vasculature: Unremarkable. No thoracic aortic aneurysm. Lymph nodes: Unremarkable. No enlarged lymph nodes. Tubes, lines and devices: The endotracheal and nasogastric tube are seen in place. There is a right-sided central line with the tip in the distal SVC. There is a right-sided chest tube in place. Other findings: There is mild left-sided shift of midline structures. IMPRESSION: 1. Findings suggestive of large right-sided hemothorax. 2. Loculated moderate left-sided pleural effusion. 3. Multilobar atelectasis. 4. Lines and tubes as described. Communications: Call Doctor Other Electronically signed by: Isadora Damian MD 01/12/24 22:08 PM
[2024-01-12] MEDS ORDERED: NOREPINEPHRINE/D5W 4 MG/250 ML IV ONE ×2 (22:21→23:01)
[2024-01-12] MEDS ORDERED: PROPOFOL IV EMULSION 10 MG/ML 100 ML VIAL IV ONE (22:21)
[2024-01-12] MEDS ORDERED: PROPOFOL BOLUS FROM BAG IV PRN (22:22)
[2024-01-12 22:24] LABS: iSTAT Art Bld Gas pCO2 Correct 100 mmHg (35-46); iSTAT Art Bld Gas pH Corrected 7.099 (7.35-7.45); iSTAT Arterial Blood Gas HCO3 30 meg/L (19-24); iSTAT Arterial Blood Gas pCO2 95 mmHg (35-46); iSTAT Arterial Blood Gas pH 7.11 (7.35-7.45); iSTAT Arterial Blood Gas pO2 47 mmHg (80-95); iSTAT Arterial Blood Gas pO2 C 50; iSTAT Carbon Dioxide 33 mmol/L (24-31); iSTAT FiO2 100 %; iSTAT Hematocrit 25 % (42-52); iSTAT Hemoglobin 8.5 g/dl (14.0-18.0); iSTAT Potassium 3.9 mmol/L (3.3-5.0); iSTAT Site Art Line; iSTAT Sodium 141 mmol/L (135-144)
[2024-01-12] MEDS ORDERED: propofoL 1,000 MG/100 ML VIAL IV SCH (22:30)
[2024-01-12] MEDS ORDERED: ETOMIDATE 2 MG/ML 20 ML VIAL IV ONE (23:44)
--- NOTE | 2024-01-13 07:50 | XRay Report ---
XR chest 1V portable CLINICAL HISTORY: dyspnea TECHNIQUE: Single frontal radiograph of the chest was obtained. Comparison: Comparison is made to chest radiograph 01/12/2024 FINDINGS: Endotracheal tube terminates 5 cm from the nathaniel. Enteric tube tip and side-port lie below the diaph ragm. A right chest tube is seen. A right subclavian catheter terminates at the cavoatrial junction. The cardiomediastinal silhouette is obscured. Multifocal airspace opacities are seen. Large right and small left pleural effusion. IMPRESSION: Lines and tubes are unchanged. Airspace opacities and bilateral pleural effusions are stable. ACT 112: Negative or not required by law. Electronically signed by: Сергей Fitzpatrick M.D. 01/13/2024 7:49 AM
--- NOTE | 2024-01-13 13:46 | Electrocardiogram Report ---
Test Reason : Blood Pressure : / mmHG Vent. Rate : 150 BPM Atrial Rate : 144 BPM P-R Int : 000 ms QRS Dur : 082 ms QT Int : 248 ms P-R-T Axes : 000 133 -12 degrees QTc Int : 391 ms Poor data quality, interpretation may be adversely affected Supraventricular tachycardia Right axis deviation Abnormal ECG When compared with ECG of 07-JAN-2024 14:31, Significant changes have occurred Confirmed by Hector Hurt ([id number]) on 01/13/2024 1:46:26 PM Referred By: REFERRED SELF Confirmed By:Hector Hurt
--- NOTE | 2024-01-13 20:45 | Discharge Summary ---
Date of Service January 13, 2024 Admission HPI Per Admitting Provider Hector is a 48 year old female with a PMH significant for HTN and hyperlipidemia who presented to the [facility] ED on 01/07/24 with complaints of ongoing SOB, BL chest pain, and generalized weakness. He was noted to be tach ycardic with HR of 92 but was otherwise stable. Labs were significant for a leukocytosis of 14 with neutrophil predominance of 12, lymphocyte count of 1.02, AG of 14 with bicarb WNL, glucose of 172, lactate WNL, procal of 1.05, and full respiratory biofire positive for Human Huntington pneumovirus. Chest xray was read as "1. Low lung volumes with mild elevation the right hemidiaphragm. 2. Abnormal density within the lower lobes posteriorly overlying the thoracic spine. This could represent a pneumonia. Follow-up chest CT recommended for further evaluation.". Chest CTA with PE protocol was read as "1. Patchy consolidative and groundglass airspace opacities within the bilateral lower lobes posteriorly most pronounced on the right. This favors a pneumonia and corresponds the chest x-ray abnormality. There appears be a small focus of central cavitation within the right lower lobe pneumonia. Therefore, this could be due to aspiration. A 3- [address] follow-up recommended to ensure resolution. 2. Trace right pleural effusion. 3. Mild mediastinal and bilateral hilar lymphadenopathy. This is likely reactive. Attention at follow-up recommended.". Per the ED staff, the patient denies a hx of recent travel or incarceration. Prior to admission the patient was given 2L NSS, a dose of Cefepime, 10 mg IV toradol, 2 mg IV morphine, and 4 mg IV zofran. At the time of the exam the patient was sitting in bed in no acute distress, he does appear ill. He states that he started to develop URI symptoms including SOB, non-productive cough, and generalized weakness. He was evaluated at an Urgent care on 01/02 and was prescribed a 5 day course of prednisone and Tessalon pearls. His symptoms did not improve so he called his PCP yesterday and was prescribed a course of Augmentin and Azithromycin. He states that he had one dose of both this am. Last night he took NyQuil and slept throughout the night. He states that when he woke this morning he started to experience BL chest pain, exacerbated with movement and coughing. He noted a fever of 101F and is now producing yellow-brown sputum. Because of these symptoms he presented to the ED. He states that he had been compliant with smoking cessation for 7 years until he restarted about one year ago. He smokes approximately 1 PPD. Since getting treatment in the ED his chest discomfort has improved but has not subsided. He has been having trouble taking deep breaths due to his chest pain. When asked, he does drink alcohol approximately 5 days a week. He typically drinks mixed drinks with liquor and soda. His last drink was on 01/01. He denies a previous hx of withdrawal symptoms when he stops drinking. Please refer to Dr. Jo' attestation for any changes to the treatment plan Admission Exam Per Admitting Provider General: In no acute distress, stated age, ill appearing but non-toxic HEENT: Normocephalic, atraumatic, no scleral icterus, pupils around round, symmetrical, and reactive to light, moist mucus membranes, trachea midline, no thyromegaly Chest/Pulm: No respiratory distress, symmetrical chest expansion, currently taking shallow breaths due to BL chest pain, scattered expiratory wheezing in the mid/upper lung bartlett, rhonchi noted in the BL lower lung bartlett Cardiac: RRR, no murmurs noted Abdomen: Negative for ascites and bruising, normoactive bowel sounds, soft, non- tender to palpation throughout Musculoskeletal: Symmetrical and without signs of acute trauma, upper and lower extremities with full ROM, no atrophy, spasticity, or flaccidity Extremities: Radial, dorsalis pedis, and posterior tibial pulses are intact and symmetrical, no edema noted in the BL LE's Skin: Warm, dry, no rashes , lesions, or scars noted Neuro: Alert and oriented to person, place, month, year, and president, no focal defects, no tremors noted Psych: No acute distress, calm and cooperative during the exam Principal Diagnosis Hemorrhagic shock, hemothorax, multifocal pneumonia with parapneumonic effusion, acute respiratory failure Discharge Exam I was not present at time of discharge/transfer to outside facility. Acute events that led to patient discharge/transfer occurred during station manager - please refer to other documentation. Discharge Data Allergies Allergy/AdvReac Type Severity Reaction Status Date / Time No Known Allergies Allergy Unverified 01/07/24 16:49 Consultations 01/07/24 16:57 ED Decision to Admit Stat 01/07/24 17:48 Consult Pulmonology Routine 01/12/24 20:38 Burn CD for patient Routine 01/12/24 20:51 Consult Strip Deburrer Routine Ordered Studies 01/07/24 14:40 CT angio chest PE protocol Stat 01/08/24 08:00 US Renal Bladder [US renal/blad retro comp] Urgent 01/08/24 10:21 CT Abdomen and Pelvis [CT abd pelvis wo con] Stat 01/12/24 12:19 CT chest diagnostic wo con Urgent 01/12/24 21:05 CT chest with contrast [CT chest diagnostic w con] Stat Hospital Course (1) Acute hypoxic on chronic hypercapnic respiratory failure: Patient presented 01/07/2024 with findings suggestive of multifocal bacterial pneumonia in setting of positive metapneumovirus. He was started on IV anti biotic therapy (Unasyn had been ongoing and completed Azithromycin) and pulmonary had been consulted on admission. Unfortunately patient's clinical status was not improving with continued intermittent fevers and slight increase in O2 requirements. On 01/11, he was found to have bilateral parapneumonic effusions on CXR and subsequent non-contrast chest CT. Pulmonary was requested to reevaluate the patient given these findings. On the evening of 01/11, pulmonary attempted unsuccessfully at ultrasound-guided pigtail catheter placement. Per chart review, patient subsequently decompensated night of 01/11, requiring emergent intubation, pressor support, and initiation of MAC transfusion protocol. Right sided chest tube was placed, central line was placed, and arterial line was placed. Patient then transferred via life flight in critical condition to [facility] for ongoing management of unstable hemothorax in setting of pneumonia and parapneumonic effusions. (2) Hemorrhagic shock: See above (3) Hemothorax: See above (4) Parapneumonic effusion: See above (5) Multifocal pneumonia: See above (6) Human metapneumovirus (hMPV) pneumonia: Likely initially a viral insult, with secondary bacterial overgrowth and development of parapneumonic effusions (7) DANIELITO (acute kidney injury): Had been improving on IV fluids but worsened with acute events prior to transfer (8) Chest pain: Earlier in course, suspected pleurisy +/- MSK pain due to pneumonia with unremarkable troponin Avoiding NSAIDs with recent DANIELITO, had been receiving acetaminophen. (9) Tobacco abuse: Would benefit from smoke cessation following acute episode (10) Alcohol abuse: Last drink was on 01/01 No signs/symptoms of withdrawal (11) HTN (hypertension): Lisinopril has been on hold due to DANIELITO, will continue to hold on transfer (12) Hypercholesterolemia: Hold statin on transfer Plan VTE prophylaxis - Lovenox 40 mg subcu daily Diet - NPO Disposition - Transferred to [facility] 01/11 Total Time Total Time Spent Total Time Spent (In Minutes): 30 Total Time Includes: Other (Reviewing chart and documenting for discharge summary. Additionally, more than 30 min spent on patient care/progress note day of discharge prior to acute events that led to patient discharge.) Discharge Plan Discharge Items Patient Disposition: Transfer Acute Care Hospital Reason For Visit: CHEST PAIN, MULITFOCAL PNEUMONIA Discharge Diagnosis: Hemorrhagic shock, hemothorax, multifocal pneumonia with parapneumonic effusion, acute respiratory failure Condition on Discharge: Critical Activity: As commented below Activity Comment: Patient transferred in critical condition to tertiary [facility] Non-emergency contact: Primary Care Provider, Hospitalist, Surgeon, Specialist and Dispatch Manager Call non-emergency contact if: your symptoms worsen Follow-up/Referrals: PCP,NO [Primary Care Provider] - Diet: Nothing by Mouth Addtl Attending Provider Instructions: Patient presented 01/07/2024 with findings suggestive of multifocal pneumonia. He was started on antibiotic therapy, but is status worsened. On 01/11, he was found to have bilateral parapneumonic effusions. There is an unsuccessful attempt at pigtail catheter placement to start draining the effusion. Patient subsequently decompensated requiring emergent intubation and initiation of MAC transfusion protocol. Chest tube was placed, central line was placed, and arterial line was placed. Patient then transferred to [facility] for tertiary care for ongoing management of unstable hemothorax in setting of pneumonia and parapneumonic effusions. Pending Studies at Discharge: No Skilled Items Patient informed of condition?: No (Patient decompensated acutely. Per documentation, family notified.) DNR: No Discharge Level of Care: Other Communicable Disease: No Discharge Prognosis: Other Lines: Peripheral IV Urinary Catheter: Yes (Unknown, presumed to have been placed prior to transfer) Medications and DC Order Prescriptions: Continued atorvastatin 20 mg tablet 20 mg PO DAILY famotidine [Pepcid] 20 mg Tablet 20 mg PO DAILY Rx Instructions: generic [employer] brand benzonatate 100 mg capsule 100 mg PO TID lisinopril 10 mg tablet 10 mg PO DAILY Discontinued Kay 1 tab PO DAILY Rx Instructions: OTC prednisone 20 mg tablet 20 mg PO UD Rx Instructions: 2 tabs daily for 5 days albuterol sulfate 90 mcg/actuation HFA aerosol inhaler 2 puff INHALATION Q4H PRN (Reason: Other) azithromycin 250 mg Tablet 250 mg PO UD Rx Instructions: start on day 2 of therapy amoxicillin-pot clavulanate [Augmentin] 875-125 mg Tablet 1 tab PO BID Discharge Orders: Discharge Order (Routine); Ordered 01/13/24 Ordered By: Chaitanya Guallpa Admission Data Admit Date/Time: 01/07/24 17:06 Attending Provider: Ann Mtz. Admit Provider: Darnell Jo Primary Care Provider: PCP,NO Other Providers: Wiley Matos; Darnell Jo; Gonzalez Givens Coding Level of Care Code 93228 INP/OBS DISCH >30 MIN Diagnoses Acute hypoxic on chronic hypercapnic respiratory failure J96.01; J96.12 Hemorrhagic shock R57.8 Hemothorax J94.2 Parapneumonic effusion J18.9; J91.8 Multifocal pneumonia J18.9 Human metapneumovirus (hMPV) pneumonia J12.3 DANIELITO (acute kidney injury) N17.9 Chest pain R07.9 Tobacco abuse Z72.0 Alcohol abuse F10.10 HTN (hypertension) I10 Hypercholesterolemia E78.00
== END 2024-01-12 23:45 | disposition short-term general hospital (02) | DRG 208 ==
LOC: ED 13:58 → EDINP 17:06 → SUATTDRO 17:06 → 2W 19:49 → 1E 01-12 19:54
DX: J94.2 Hemothorax; J95.830 Postprocedural hemorrhage of a respiratory system organ or structure following a respiratory system procedure; N17.9 Acute kidney failure, unspecified; J96.12 Chronic respiratory failure with hypercapnia; I10 Essential (primary) hypertension; J15.9 Unspecified bacterial pneumonia; E78.00 Pure hypercholesterolemia, unspecified; J12.3 Human metapneumovirus pneumonia; E87.6 Hypokalemia; Z79.899 Other long term (current) drug therapy; Y84.4 Aspiration of fluid as the cause of abnormal reaction of the patient, or of later complication, without mention of misadventure at the time of the procedure; J96.01 Acute respiratory failure with hypoxia; T81.19XA Other postprocedural shock, initial encounter; F17.210 Nicotine dependence, cigarettes, uncomplicated; R07.89 Other chest pain; F10.10 Alcohol abuse, uncomplicated